=== PATIENT | male | born 1950 | race Caucasian/White ===

== ENCOUNTER → 2021-04-06 13:07 | Outpatient (CLI) | payer MEDICARE, OTHER, SELFPAY | PROVIDERS: PCP Pediatrics; Visit Provider Nurse Practitioner | DX: Z20.822 Contact with and (suspected) exposure to COVID-19 (principal) | CPT/HCPCS: C9803; U0003; U0005 ==

== ENCOUNTER 2022-04-19 10:50 | Emergency (ER) | payer MEDICARE, OTHER, SELFPAY ==
[2022-04-19 13:00] VITALS: BP 140/86; PULSE 83; RESP 19; TEMP 36.6; O2SAT 98; BMI 34.2
--- NOTE | 2022-04-19 13:16 | EXP.UTC ---
Discharge Plan Disposition Patient Disposition: Home, Self-Care Condition: Good Prescriptions Prescriptions: New azithromycin [Zithromax Z-Jose] 250 mg tablet See Rx Instructions .ROUTE .COMPLEX 5 Days Qty: 6 0RF Rx Instructions: For 250 mg dose pack: take 500 mg today (day 1), then 250 mg for 4 days (days 2-5) methylprednisolone [Medrol (Jose)] 4 mg tablets,dose pack See Rx Instructions .Route .COMPLEX 6 Days Qty: 21 0RF Rx Instructions: taper pack; Referrals Follow up/Referrals: Thor Graf [Primary Care Provider] - See instructions Activity Restrictions/Add. Instructions Additional Instructions/Restrictions: *Monitor Temp, Over the counter Motrin or Tylenol as directed/as needed Tylenol every 4 hours and Motrin every 6 hours (as long as your family doctor has told you that you can take it) for fever or pain. and straight to ER if unable to lower temp less than 101.0 after medication given *Warm salt water gargles may help to soothe the throat *Throat Lozenges? *Warm fluids like tea with honey may help to soothe the throat? *Sleep elevated *Humidifier/Vaporizer Start oral steriods tomorrow Follow up IMMEDIATELY for new or worsening symptoms or no Noticeable improvement over the next 48-72 hours. 911 for difficulty breathing or swallowing Clinical Impressions Clinical Impression: Sinusitis Instructions Patient Instructions: Sinusitis, DI for Sinusitis Discharge ED Provider: Griselda Smith [facility] General Stated complaint: sinus pain Mode of Arrival: Ambulatory Source of Information: Patient Limitations: No Limitations Time Seen by Provider: 04/19/22 13:16 Description of Symptoms (Recalled from Triage Doc. by RN): PATIENT C/O SINUS PRESSURE AND PAIN X 3 DAYS HEENT Symptoms (Recalled from RN notes): Yes Resp Symptoms (Recalled from RN notes): No Skin Symptoms (Recalled from RN notes): No MS Symptoms (Recalled from RN notes): No Functional Status (Recalled from RN notes): WNL History of Present Illness Provider Complaint: Patient states that he has been having sinus pain and pressure on and off for over a week that has got worse over the last 3 days States that he gets these about twice a year and has to get antibiotitics and steriods to clear it up Related Data Previous Rx's Medication Instructions Recorded azithromycin 250 mg tablet See Rx Instructions PO .COMPLEX 5 04/19/22 (Zithromax Z-Jose) days #6 tabs methylprednisolone 4 mg tablets in See Rx Instructions .Route 04/19/22 a dose pack (Medrol (Jose)) .COMPLEX 6 days #21 tabs Allergies Allergy/AdvReac Type Severity Reaction Status Date / Time No Known Allergies Allergy Verified 03/29/19 10:04 Worker's Comp Is this a Worker's Comp case?: No [facility] Disclaimer: The information contained in this section may have been updated after the patient was seen, as this information can be updated by other users. Surgical History (Updated 04/19/22 @ 13:14 by Alix Tran RN) History of hernia repair History of knee surgery History of shoulder surgery Social History (Updated 04/19/22 @ 13:14 by Alix Tran RN) Smoking Status: Unknown if ever smoked second hand exposure: No alcohol intake: never current occupational status: other Travel in the last 8 weeks: None housing: house ROS Obtained: Yes All systems reviewed & no additional complaints except as documented and Yes Systems reviewed as appropriate & no additional complaints except as documented Constitutional Constitutional: Reports system reviewed and no additional complaints, except as documented and Reports as per HPI ENT Ears, Nose, Mouth, and Throat: Reports system reviewed and no additional complaints, except as documented, Reports as per HPI, Reports sinus pain and Reports sinus pressure Cardiovascular Cardiovascular: Reports system reviewed and no additional complaints, except as documented and Report
[2022-04-19 13:59] VITALS: BP 140/86; PULSE 83; RESP 19; TEMP 36.6; O2SAT 98
== END 2022-04-19 14:01 | disposition home or self-care (01) ==
PROVIDERS: Emergency Provider Nurse Practitioner; PCP Pediatrics
DX: J32.9 Chronic sinusitis, unspecified (principal)
CPT/HCPCS: 96372; 99212; G0463; J0696

== ENCOUNTER 2025-05-07 21:08 | Emergency (ER) | payer MEDICARE, OTHER, SELFPAY ==
--- OUTSIDE RECORDS SUMMARY | 2025-03-15 08:15 | XMS_ITS | Encounter Summary ---
Author Organization [facility] Address [address] [place] [address] Care Team Providers Care Strap Buckler Machine Name Role Phone Thor Graf MD Primary Care Provider [phone] Lady Armendariz RN Unavailable [phone] Reason for Visit * Reason Comments Follow-up Encounter Details Date Type Department Care Team (Late st Contact Info) Description 03/15/2025 9:15 AM EDT Office Visit [facility] [address] [place] [address] Gustavo Real MD [address] [place] [address] SI (sacroiliac) joint dysfunction (Primary Dx) Social History Tobacco Use Types Packs/Day Years Used Date Smoking Tobacco: Never Passive Smoke Exposure: Never Smokeless Tobacco: Never Alcohol Use Standard Drinks/Week Comments Not Currently 0 (1 standard drink = 0.6 oz pur e alcohol) B1300 Health Literacy Answer Date Recor ded How often do you need to hav e someone help you when you read instructions, pamphlets, or other written material from your doctor or pharmacy? Never 11/27/2024 [facility] Utilities Answer Date Recorded In the past 12 months has e electric, gas, oil, or water company threatened to shut off services in your home? No 12/11/2024 Social Connection and Isolation Panel Answer Date Recorded In a typical week, how many times do you talk on the phone with family, friends, or neighbors? More than three times a week 11/27/2024 How often do you get togethe r with friends or relatives? More than three times a week 11/27/2024 Attends [employer] Services Not on file 11/27 Active Member of Clubs or Organizations Not on f ile 11/27/2024 Attends Club or Organization Meetings Not on nya e 11/27/2024 Are you , , di vorced, , never , or living with a partner? 11/27/2024 Overall Financial Resource Strain (CARDIA) Answe r Date Recorded How hard is it for you to pa y for the very basics like food, housing, medical care, and heating? Not very hard 12/11/2024 PHQ-2 Answer Date Recorded PHQ-2 Total Score 0 12/11/2024 [facility] [place] [facility] Occupat ional Health - Occupational Stress Questionnaire Answer Date Recorded Do you feel stress - tense, restless, nervous, or anxious, or unable to sleep at night because your mind is troubled all the time - these days? Not at all 12/11/2024 Exercise Vital Sign Answer Date Recorde d On average, how many days pe r week do you engage in moderate to strenuous exercise (like a brisk walk)? 7 days 12/11/2024 On average, how many minutes do you engage in exercise at this level? 150+ min 12/11/2024 Hunger Vital Sign Answer Date Recorded Within the past 12 months, y ou worried that your food would run out before you got the money to buy more. Never true 12/12/19 25 Within the past 12 months, t he food you bought just didn't last and you didn't have money to get more. Never true 12/11/2024 PRAP[facility] - Transportation Answer Date Re corded In the past 12 months, has l ack of transportation kept you from medical appointments or from getting medications? No 11/13 In the past 12 months, has l ack of transportation kept you from meetings, work, or from getting things needed for daily living? No 11/27/2024 Housing Stability Vital Sign Answer Merritt e Recorded In the last 12 months, was t here a time when you were not able to pay the mortgage or rent on time? No 11/27/2024 In the past 12 months, how m any times have you moved where you were living? 0 11/27/2024 At any time in the past 12 m [facility], were you homeless or living in a usp (including now)? No 11/27/2024 [facility] IP Transportation Answer D ate Recorded In the past 12 months, has l ack of reliable transportation kept you from medical appointments, meetings, work or from getting things needed for daily living? No 12/11/2024 Sex and Gender Information Value Date Recorded Sex Assigned at Not on file Legal Sex Male 2:28 PM EDT Gender Identity Not on file Sexual Orientation Not on file documented as of this encounter Functional Status * Is the person deaf or does he/she have serious difficulty hearing? Answer Date of Assessment Author No 11/29/2024 7:48 AM Anson Bashir CCMA * Is the person blind or does he/she have serious difficulty seeing even when wearing glasses? Answer Date of Assessment Author No 11/29/2024 7:48 AM EDAnson Blank CCMA * Does this person have serious difficulty walking or climbing stairs? Answer Date of Assessment Author No 11/29/2024 7:48 AM Anson Bashir CCMA * Does this person have difficulty dressing or bathing? Answer Date of Assessment Author No 11/29/2024 7:48 AM Anson Bashir CCMA * Because of a physical, mental or emotional condition, does this person have difficulty doing errands alone such as visiting a doctor's office or shopping? Answer Date of Assessment Author No 11/29/2024 7:48 AM Anson Bashir CCMA documented as of this encounter Mental Status * Because of a physical, mental or emotional condition, does this person have serious difficulty concentrating, remembering or making decisions? Answer Entry Date Author No 11/29/2024 7:48 AM Anson Bashir CCMA documented in this encounter Progress Notes * Gustavo Bowie MD - 03/15/2025 9:15 AM EDT Images from the original note were not included. HPI 74-year-old male who comes here regarding his lower back he was diagnosed with SI joint dysfunctionand received a left-sided SI joint injection helped significant with the symptoms he still feels some stiffness and soreness into the lumbar spine. Past medical history surgical history medication allergies and review of system all review of notedchart Physical exam On exam today there is no SI joint pain is more stiffness and soreness from possible facet joint arthritis changes. 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 If the symptoms do not get better he will need an MRI and see Dr. Gupta for possible facet joint injection. Lumbar support brace was recommended documented in this encounter Plan of Treatment Upcoming Encounters Date Type Department Care Team (Late st Contact Info) Description 06/25/2025 8:45 AM EST Appointment [place] [address] 06/25/2025 9:00 AM EST Appointment [facility] [place] [address] Jose Pretty MD [address] [place] [address] [address] [place] [address] documented as of this encounter Goals Goal Patient Goal Type Associated Problems Recent Progress Patient-Stated? Author Maintain a healthy diet, exercise regularly and maintain an ideal body weight General No Nakita Lewis S, RMA documented as of this encounter Visit Diagnoses Diagnosis SI (sacroiliac) joint dysfunction- Primary Disorders of sacrum documented in this encounter Historical Medications * This list may reflect changes made after this encounter. atorvastatin (LIPITOR) 40 mg Oral Tablet Take 40 mg by mouth nightly. 03/04/2025 added in this encounter Additional Health Concerns Assessment Noted Time A fall risk assessment has been complete d for the patient 04/30/2024 7:59 AM EST documented as of this encounter Care Teams Strap Buckler Machine Relationship Specialty Start Date End Date Thor Graf MD [facility] [place] [id number] PCP - General 06/12/09 Lady Armendariz, RN Oncology Nurse Navigator 11/13/24 documented as of this encounter
--- OUTSIDE RECORDS SUMMARY | 2025-03-19 08:50 | XMS_ITS | Encounter Summary ---
Author Organization [place] [address] Care Team Providers Care Production Broacher Name Role Phone Thor Graf MD Primary Care Provider [phone] Lady Armendariz RN Unavailable [phone] Reason for Visit * Reason Comments Labs Only Encounter Details Date Type Department Care Team (Late Contact Info) Description 03/19/2025 8:50 AM EST Clinical Support [facility] [address] [place] [id number] Nakita Flores E [address] [place] [address] Malignant neoplasm of transverse colon (HCC) Social History Tobacco Use Types Packs/Day Years [...] from your doctor or pharmacy? Never 11/27/2024 [facility] Utilities Answer Date Recorded In the past 12 months has [employer] electric, gas, oil, or water company threatened [...] than three times a week 11/27/2024 Attends [employer] Not on file 11/27 Active Member [...] Date Recorded PHQ-2 Total Score 0 12/11/2024 [facility] ional Health - Occupational Stress [...] any time in the past 12 m [facility], were you homeless or living in a custodial (including now)? No 11/27/2024 [facility] IP Transportation Answer D ate Recorded In [...] of Assessment Author No 11/29/2024 7:48 AM EDT Anson Lancaster CCMA * Is the person blind or does he/she have serious difficulty seeing even when wearing glasses? Answer Date of Assessment Author No 11/29/2024 7:48 AM EDAnson Blank CCMA * Does this person have serious difficulty walking or climbing stairs? Answer Date of Assessment Author No 11/29/2024 7:48 AM EDAnson Blank CCMA * Does this person have difficulty dressing or bathing? Answer Date of Assessment Author No 11/29/2024 7:48 AM EDAnson Blank CCMA * Because of a physical, mental or emotional condition, does this person have difficulty doing errands alone such as visiting a doctor's office or shopping? Answer Date of Assessment Author No 11/29/2024 7:48 AM EDAnson Blank CCMA documented as of this encounter Mental Status * Because of a physical, mental or emotional condition, does this person have serious difficulty concentrating, remembering or making decisions? Answer Entry Date Author No 11/29/2024 7:48 AM Anson Bashir CCMA documented in this encounter Progress Notes * Nakita Flores - 03/19/2025 8:50 AM EST Venipuncture in the right antecubital vein with 21 gauge needle, length 1 1/2 inch. documented in this encounter Plan of Treatment Upcoming Encounters Date Type Department Care Team (Late st Contact Info) Description 06/25/2025 8:45 AM EST Appointment [place] [address] 06/25/2025 9:00 AM EST Appointment [place] [place] [address] Jose Pretty MD [address] [facility] [address] [place] [address] documented as of this encounter Goals Goal Patient Goal Type Associated Problems Recent Progress Patient-Stated? Author Maintain a healthy diet, exercise regularly and maintain an ideal body weight General No Nakita Lewis, VICK documented as of this encounter Procedures Procedure Name Priority Date/Time Associated Diagnosis Comments CARCINOEMBRYONIC ANTIGEN Routine 025 8:36 AM EST Malignant neoplasm of transverse colon (HCC) documented in this encounter Results * CARCINOEMBRYONIC ANTIGEN (03/19/2025 8:36 AM EST) CEA (Legacy) 0.60 ng/mL 5 8:38 PM EST [employer] Comment: Non-Smokers: <= 5.0 ng/mL Smokers: <= 10.0 ng/mL [facility] uses the [employer] Officer CEA assay, which is intended to be used as an aid in the prognosis and management of cancer patients. CEA can have significant value in the monitoring of patients with diagnosed malignancies in whom changing concentrations of CEA are observed. CEA testing is not recommended as a screening test for the general population. Values obtained with different assay methods should not be used interchangeably. CEA 0.73 See Interpretive Data ng/mL 5 8:38 PM EST [employer] Comment: Non-Smokers: <= 3.8 ng/mL Smokers: <= 5.5 ng/mL Please note that this result was provided as part of a rebaselining process in preparation to implement a new testing methodology for CEA using the Robyn Fabricio electrochemiluminescence immunoassay. Differences in values may be observed due to variation in methodologies and should not be used interchangeably. The test is intended for use as an aid in the management of cancer patients. Slight to moderate CEA concentrations can occur in a variety of non-malignant diseases as well as in smokers. CEA determinations are not recommended for cancer screening in the general population. Blood VENOUS BLOOD / Unknown Venipuncture / Unknown 03/19/2025 8:36 AM EST 03/19/2025 8:36 AM EST [facility] ELECTRONIC FIELD SERVICE ENGINEER CHEMISTRY ORDERABLES Final Re sult [facility] [address] [facility] , [address] [place] [address] documented in this encounter Visit Diagnoses Diagnosis Malignant neoplasm of transverse colon (HCC) Malignant neoplasm of transverse colon documented in this encounter Additional Health Concerns Assessment Noted Time A fall risk assessment has been complete d for the patient 04/30/2024 7:59 AM EST documented as of this encounter Care Teams Production Broacher Relationship Specialty Start Date End Date Thor Graf MD [employer] [place] [address] [place] [id number] PCP - General 06/12/09 Lady Armendariz, RN Oncology Nurse Navigator 11/13/24 documented as of this encounter
--- OUTSIDE RECORDS SUMMARY | 2025-03-21 11:00 | XMS_ITS | Encounter Summary ---
Author Organization [place] [address] Care Team Providers Care Molecular Pathologist Name Role Phone Thor Graf MD Primary Care Provider [phone] Lady Armendariz RN Unavailable [phone] Reason for Visit * Reason Comments Other Drainage in throat Encounter Details Date Type Department Care Team (Late Contact Info) Description 03/21/2025 11:00 AM EST Office Visit [facility] [address] [place] [id number] Leona Kaba APRN [address] [place] [address] Rhinorrhea (Primary Dx); Acute cough Social History Tobacco Use Types Packs/Day Years [...] from your doctor or pharmacy? Never 11/27/2024 [facility] Utilities Answer Date Recorded In the past [...] than three times a week 11/27/2024 Attends [employer] [facility] Not on file 11/27 Active Member [...] Date Recorded PHQ-2 Total Score 0 12/11/2024 [facility] - Occupational Stress [...] any time in the past [address] [facility], were you homeless or living in a fpc (including now)? No 11/27/2024 [facility] [address] IP Transportation Answer D ate Recorded In [...] on file documented as of this encounter Last Filed Vital Signs Vital Sign Reading Time Taken Comments Blood Pressure 131/67 03/21/2025 10:53 AM EST Pulse 84 03/21/2025 10:53 AM EST Temperature 36.9 C (98.5 F) 03/21/2025 10:53 AM EST Respiratory Rate 18 03/21/2025 10:53 AM EST Oxygen Saturation 97% 03/21/2025 10:53 AM EST Inhaled Oxygen Concentration - - Weight 103 kg (227 lb) 03/21/2025 10:53 AM EST Height - - Body Mass Index 34.52 02/22/2025 9:20 AM EDT documented in this encounter Functional Status * Is the person deaf or does he/she have serious difficulty hearing? Answer Date of Assessment Author No 11/29/2024 7:48 AM EDT Anson Lancaster CCMA * Is the person blind or does he/she have serious difficulty seeing even when wearing glasses? Answer Date of Assessment Author No 11/29/2024 7:48 AM EDT Anson Lancaster CCMA * Does this person have serious difficulty walking or climbing stairs? Answer Date of Assessment Author No 11/29/2024 7:48 AM EDT Anson Lancaster CCMA * Does this person have difficulty dressing or bathing? Answer Date of Assessment Author No 11/29/2024 7:48 AM EDT Anson Lancaster CCMA * Because of a physical, mental [...] documented in this encounter Progress Notes * Leona Kaba APRN - 03/21/2025 11:00 AM EST Assessment & Plan Rhinorrhea -neg covid/flu/rsv -indication for antibiotic use at this time -given steroid IM for acute relief of sx -recommend otc zyrtec/flonase once daily for sx control -follow-up as needed Orders: POCT CEPHEID SARS COV-2 RNA + FLU A/B + RSV methylPREDNISolone acetate (DEPO-Medrol) injection 80 mg betamethasone acet-betamethasone sodium phos (CELESTONE) injection 6 mg Acute cough Orders: POCT CEPHEID SARS COV-2 RNA + FLU A/B + RSV Progress Note: Vitals: 03/21/25 1053 BP: 131/67 Pulse: 84 Resp: 18 Temp: 98.5 ??F (36.9 ??C) TempSrc: Forehead SpO2: 97% Weight: 227 lb (103 kg) Body mass index is 34.52 kg/m??. SUBJECTIVE: Chief Complaint Patient presents with Other Drainage in throat HPI: 2 day hx of PND, congested cough. No fever, chills or body aches. No sob. Review of Systems Constitutional: Negative for fever. HENT: Positive for congestion and postnasal drip. Respiratory: Positive for cough. Negative for shortness of breath and wheezing. Cardiovascular: Negative for chest pain, palpitations and leg swelling. Gastrointestinal: Negative for abdominal pain. Hematological: Negative for adenopathy. Does not bruise/bleed easily. OBJECTIVE: Results for orders placed or performed in visit on 03/21/25 POCT CEPHEID SARS COV-2 RNA + FLU A/B + RSV Result Value Ref Range SARS COV-2 RNA Negative Negative, Invalid INFLUENZA A Negative Negative, Invalid INFLUENZA B Negative Negative, Invalid RSV Negative Negative, Invalid Lot Number Expiration Date SeriAl # Control Line Physical Exam Constitutional: Appearance: Normal appearance. HENT: Head: Normocephalic and atraumatic. Right Ear: Tympanic membrane normal. Left Ear: Tympanic membrane normal. Nose: Nose normal. Mouth/Throat: Mouth: Mucous membranes are moist. Cardiovascular: Rate and Rhythm: Normal rate and regular rhythm. Heart sounds: Normal heart sounds. Pulmonary: Effort: Pulmonary effort is normal. Breath sounds: Normal breath sounds. Musculoskeletal: Cervical back: Normal range of motion. Neurological: Mental Status: He is alert and oriented to person, place, and time. Psychiatric: Mood and Affect: Mood normal. Thought Content: Thought content normal. Judgment: Judgment normal. documented in this encounter Plan of Treatment Upcoming Encounters Date Type Department Care Team (Late st Contact Info) Description 06/25/2025 8:45 AM EST Appointment [facility] [address] 06/25/2025 9:00 AM EST Appointment [facility] [place] [address] Jose Pretty MD [address] [place] [address] [address] [place] [address] documented as of this encounter Goals Goal Patient Goal Type Associated Problems Recent Progress Patient-Stated? Author Maintain a healthy diet, exercise regularly and maintain an ideal body weight General No Nakita Lewis S, RMA documented as of this encounter Procedures Procedure Name Priority Date/Time Associated Diagnosis Comments POCT CEPHEID SARS COV-2 RNA + FLU A/B + RSV Routine 03/21/2025 11:47 AM EST Rhinorrhea Acute cough documented in this encounter Results * POCT CEPHEID SARS COV-2 RNA + FLU A/B + RSV (03/21/2025 11:47 AM EST) SARS COV-2 RNA Negative Negative, Invalid SEP OFFICE INFLUENZA A Negative Negative, Invalid SEP OFFICE INFLUENZA B Negative Negative, Invalid SEP OFFICE RSV Negative Negative, Invalid SEP OFFICE Lot Number SEP OFFICE Expiration Date SEP OFFICE SeriAl # SEP OFFICE Control Line SEP OFFICE 03/21/2025 11:4 7 AM EST Leona Kaba PHOTOENGRAVING FINISHER POINT OF CARE TEST ORDERABL ES Final Result SEP OFFICE documented in this encounter Visit Diagnoses Diagnosis Rhinorrhea- Primary Other diseases of nasal cavity and sinuses Acute cough documented in this encounter Administered Medications Inactive Administered Medications - up to 1 most recent administrations Medication Order MAR Action Action Date Dose Rate Site betamethasone acet-betamethasone sodium phos (CELESTONE) injection 6 mg 6 mg, Intramuscular, ONCE, 1 dose, On Nichole 03/21/25 at 1115, Do not refrigerate, Dx: 1. RhinorrheaIndications:Rh inorrhea Given 03/21/2025 11:28 AM EST 6 mg Right upper gluteus methylPREDNISolone acetate (DEPO-Medrol) injection 80 mg 80 mg, Intramuscular, ONCE, 1 dose, On Nichole 03/21/25 at 1115, Dx: 1. RhinorrheaIndications:Rh inorrhea Given 03/21/2025 11:28 AM EST 80 mg Right upper gluteus documented in this encounter Additional Health Concerns Assessment Noted Time A fall risk assessment has been complete d for the patient 04/30/2024 7:59 AM EST documented as of this encounter Care Teams Molecular Pathologist Relationship Specialty Start Date End Date Thor Graf MD [address] [place], [place] [id number] PCP - General 06/12/09 Lady Armendariz, RN Oncology Nurse Navigator 11/13/24 documented as of this encounter
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
--- OUTSIDE RECORDS SUMMARY | 2025-05-01 08:00 | XMS_ITS | Encounter Summary ---
Author Organization [place] [address] Care Team Providers Care Special Librarian Name Role Phone Thor Graf MD Primary Care Provider [phone] Lady Armendariz RN Unavailable [phone] Reason for Visit * Reason Comments Medicare Annual Wellness medicare Encounter Details Date Type Department Care Team (Late Contact Info) Description 05/01/2025 8:00 AM EST Office Visit [facility] [place] [address] [place] [address] Thor Graf MD [address] [place] [address] Annual physical exam (Primary Dx); Rhinosinusitis; Screening for prostate cancer; Muscle cramps Social History Tobacco Use Types Packs/Day Years [...] from your doctor or pharmacy? Never 11/27/2024 [facility] Utilities Answer Date Recorded In the [...] than three times a week 11/27/2024 Attends [employer] Services Not on file 11/27 Active Member [...] Date Recorded PHQ-2 Total Score 0 12/11/2024 [facility] [...] any time in the past 12 m [facility], were you homeless or living in a residential (including now)? No 11/27/2024 [facility] IP Transportation Answer D ate Recorded In [...] Sign Reading Time Taken Comments Blood Pressure 130/70 05/01/2025 7:58 AM EST Pulse 78 05/01/2025 7:58 AM EST Temperature 36.7 C (98 F) 05/01/2025 7:58 AM EST Respiratory Rate 18 05/01/2025 7:58 AM EST Oxygen Saturation 97% 05/01/2025 7:58 AM EST Inhaled Oxygen Concentration - - Weight 101.6 kg (224 lb) 05/01/2025 7:58 AM EST Height 172.7 cm (5' 8 ) 05/01/2025 7:58 AM EST Body Mass Index 34.06 05/01/2025 7:58 AM EST documented in this encounter Functional Status [...] Anson Bashir CCMA documented in this encounter Ordered Prescriptions Prescription Sig Dispense Quantity Refills Last Filled Start Date End Date ergocalciferol (VITAMIN D) 1,250 mcg (50,000 unit) Oral CapsuleIndications :Muscle cramps Take 1 Capsule by mouth once a week for 90 days. 12 Capsule 05/01/2025 meclizine (ANTIVERT) 25 mg Oral Tablet Take one every 6 hours as needed for dizziness. 20 Tablet 1 05/01/2025 fluticasone propionate (FLONASE) 50 mcg/actuation Nasl [place], SuspensionIndicati ons:Rhinosinusitis 1 [place] by Nasal route daily. 1 Each 1 05/01/2025 documented in this encounter Progress Notes * Tohr Graf MD - 05/01/2025 8:00 AM ESTAssociated Problem(s): Annual physical exam Orders: COMPREHENSIVE METABOLIC PANEL; Future CBC WITH DIFF; Future LIPID SCREEN; Future * Thor Graf MD - 05/01/2025 8:00 AM EST Assessment & Plan 1. Leg cramps: - The leg cramps may be associated with his cholesterol medication. - A prescription for vitamin D, to be taken once weekly, has been provided. Additionally, he is advised to take [id number] magnesium 400 mg daily. - If these interventions do not alleviate the cramps within a few weeks, he should inform the office so that alternative treatments can be considered. - If the cramps persist, a reduction in his cholesterol medication dosage may be necessary. 2. Post-surgical groin pain: - He is experiencing groin pain post-surgery, which is expected to last between 6 to 9 months. - This pain is likely due to the healing process of the muscle fibers and nerves that were cut during surgery. - He is reassured that this is a normal part of recovery and should gradually improve over time. 3. Health maintenance: - Routine blood work, including prostate and cholesterol levels, will be conducted. Assessment & Plan Rhinosinusitis Orders: fluticasone propionate (FLONASE) 50 mcg/actuation Nasl [place], Suspension; 1 [place] by Nasal route daily. Annual physical exam Orders: COMPREHENSIVE METABOLIC PANEL; Future CBC WITH DIFF; Future LIPID SCREEN; Future Screening for prostate cancer Orders: PROSTATE SPECIFIC ANTIGEN (SCREENING); Future Muscle cramps Orders: ergocalciferol (VITAMIN D) 1,250 mcg (50,000 unit) Oral Capsule; Take 1 Capsule by mouth once a week for 90 days. No follow-ups on file. Subjective Pato Chadwick Sr. is a 74 y.o. male Chief Complaint Patient presents with Medicare Annual Wellness medicare Subsequent Annual Medicare Wellness Assessment. Risk Assessments: Fall Risk Assessment Has the patient had any fall with injury in the past year?: No Has the patient had 2 or more falls in the past year?: No Is the patient able to sit without assistance?: Yes Is the patient able to get up without assistance?: Yes Does the patient have a difficult time ambulating when first getting up?: No Does the patient have rugs or runners in the home?: No Does the patient have grab bars in the bathroom?: (!) No Does the patient have stairs inside or outside of the home?: No (In Office Assessment Only): Is the patient able to ambulate without assistance/device and with a gait steady?: Yes (In Office Assessment Only): TUG test: Time patient going from sitting to standing, walk 10 feet, return to chair and sit. Record time. : Less or equal to 12 seconds Functional Status Assessment Functional Level: self care Functional Mobility Assessment: independent w/o assist device Assessment of transportation needs: still drives most of the time Functional Activities of Daily Living Limitations: No issues Bladder: Do you have issues with your bladder, such as urgency or leaking urine?: No issues Does the patient report issues or concerns regarding hearing?: No Activities of Daily Living Assistive Device Assessment Assistive Devices: Eyeglasses Rx Osteoporosis Screening Assessment Has the patient had a DEXA (Bone Density) scan in the past 2 years?: Not applicable (male) No results found for this or any previous visit. Abnormal Pains Assessment Excluding what you would consider normal aches and pains for your age and medical condition, do youhave any unusual or worrisome pains?: No Opiate Screening Are you currently on opiate or narcotic medications?: No PHQ Depression Screening Results Little interest or pleasure in doing things: 0 Feeling down, depressed, or hopeless: 0 PHQ-2 Total Score: 0 PHQ-9 Total Score: 0 Advanced Directive Evaluation Does the patient have an Advance Directive?: (!) Yes, but not on file (Please bring your Advance Directive to your next office visit) Advance Care Planning Guide Given?: (!) No (For Dementia Screening below can use either AD-8 or Mini Cog. Doesn't require both.) AD-8 Dementia Screening tool results Problems with judgement: 0 Less interest in hobbies/activities: 0 Repeats the same things over and over: 0 Trouble learning how to use a tool, appliance or gadget: 0 Forgets correct month or year: 0 Trouble handling complicated financial affairs: 0 Trouble remembering appointments: 0 Daily problems with thinking and/or memory: 0 Total AD8 score:: 0 Mini Cog Dementia Screening tool results Number of words immediately repeated back correctly.: 3 Clock Test: Please draw a clock face and draw in hands to show 10 minutes past eleven o'clock.: correct number placement, 1 pt; correct hand placement, 1 pt Number of Words Recalled: 3 Dementia: Negative Welcome to Medicare Vision Screening Eye Exam : Not applicable/required for Subsequent AWV, only required for Welcome to Medicare Visit Patient Instructions AWV findings and Plan of Care: Recommendations as part of the Personal Plan of Care based on risk screening assessments are: Fall Risk Assessment: Fall Risk Assessment: negative - re-assess in 1 year Functional Status/Social Determinates of Health: stable, no issues, re-assess in 1 year Depression Screening: negative - re-assess in 1 year Dementia Screening: negative - recommend re-assess in 1 year Vaccinations: - up to date Exercise/Activity: recommended continuing current Recommended follow up annually for Medicare Annual Wellness Visit. Good preventative health care is important in reducing morbidity and mortality. I recommend exercise regularly as tolerated focusing on strength and balance. I recommend a balanced diet focusing on fruits, veggies, and lean meats. I recommend avoiding having rugs, runners, or other loose trip hazards in the home as these increase fall risk. I recommend installing grab bars in the bathrooms close to toilets, in tubs, and in showers as these are common areas for falls when transitioning from wet surfaces to dry surfaces, or visa versa. This is also an area of the home that is high risk for falls at night. I encourage having an Advanced Directives. This is something we recommend you have on file at home,as well as something that we should have on file in our records. If we don't have a copy of your current Advanced Directive, please bring a copy to your next visit. If you have a power of city attorney [facility], we should also have a copy on file. I encourage candid discussion with your family on your wishes in the event that you are incapacitated and unable to participate in direct medical decision making. It is important to stay up to date on recommended vaccinations, please see the health maintenance topics due below and if we have not completed one of those topics today, please consider completing as part of your wellness plan this year. Below are other health maintenance topics that are recommended to be closed at your earliest opportunity. You may notice that some of these were addressed in the office today and will show as resolved in your [facility] account soon. Health Maintenance Due Topic Date Due Zoster (1 of 2) Never done DTaP/TDaP/Td (2 - Td or Tdap) 11/18/2024 COVID-19 Vaccine ( season) 2025 Wellness Exam Medicare 05/01/2025 As part of today's visit the components of the Medicare wellness assessment were completed. These components included reviewing the information available in the risk screening questionnaire that was administered by ancillary staff either today or prior to today's visit (pre-visit planning) and recorded in the Medicare Wellness Assessment Flowsheet in the EMR. I have reviewed the data in regards to fall risk, activities of daily living/functional status, depression screening, dementia screening,and outstanding Health Maintenance topics and edited where necessary. The staff has reviewed and updated the past medical history, social history, family history, allergies, medications, and care team information during the standard rooming process. I have also reviewed this data as part of today'svisit. Below are the findings, recommendations, and Personal Plan of Care. The patient received a copy of their Personal Plan of Care including health maintenance topics thatare recommended to be completed and this can be noted in the after visit summary. The AVS is provided to the patient digitally through their [facility] account or with a paper copy if the patient doesn't have an active MyChart Account. A copy of today's progress note with recommendations below is alsoavailable electronically for patients with an active [facility] account per the Federal Cures Act. TheAVS also contains additional patient education if appropriate on topics common to wellness and their plan of care. History Reviewed: No results found. No results found for this visit on 05/01/25. Problem List[1] Past Medical History[2] Surgical History[3] Allergies[4] Medications ordered prior to the current encounter[5] Social History[6] Family History[7] Immunization History Administered Date(s) Administered Influenza High Dose 03/14/2017, 02/23/2018, 04/09/2019, 04/30/2024, 02/25/2025 Influenza Intradermal 04/24/2012 Influenza Vaccine Quadrivalent 02/03/2015, 04/02/2016 Influenza Vaccine, Unspecified Formulation 03/16/2020 Moderna SARS-CoV-2 Booster Vaccine 18+ Yrs (Light Blue Border) 04/01/2021 Moderna SARS-CoV-2 Vaccine 12+ Yrs (Light blue border) 06/29/2020, 07/27/2020 Pneumococcal Conjugate Vaccine 20 Valent 04/28/2023 Pneumococcal Polysaccharide 23 Valent 04/09/2019 Quadrivalent Influenza High Dose 02/09/2021, 04/26/2022, 04/28/2023 Td (Adult), Absorbed 07/21/1996 Tdap 11/18/2014 Health Maintenance Topic Date Due Zoster (1 of 2) Never done DTaP/TDaP/Td (2 - Td or Tdap) 11/18/2024 COVID-19 Vaccine ( - season) 2025 Wellness Exam Medicare 05/01/2025 Colon Cancer Screening 10/31/2025 Influenza Vaccine Completed Hepatitis C Screening Completed Pneumococcal Vaccine 50+ Completed Meningococcal B Vaccine Aged Out Hepatitis B Vaccine Aged Out Patient Care Team: Thor Graf MD as PCP - General Lady Armendariz, RN as Oncology Nurse Navigator Additional issues addressed today: History of Present Illness The patient is a 74-year-old male who presents for evaluation of leg cramps. He reports experiencing leg cramps, particularly in the mornings, which occasionally affect both legs. These cramps are often triggered by stretching while in bed and have been severe enough to disrupt his sleep. He has not sustained any recent injuries to his legs and does not experience significant discomfort during daytime activities. On 04/29/2025, he experienced a persistent muscle knot throughout the day, which he managed with a heating pad. He also reports a constant stiffness in his neck. His sales project coordinator recently increased his cholesterol medication dosage due to a decrease in his cholesterol levels. He has a follow-up appointment scheduled with his sales project coordinator next month. He has been experiencing groin pain, which he describes as similar to a muscle pull. He reports no visible bulges or protrusions in the area and does not believe he has a hernia. He had a consultation with a surgeon in 03/2025, who found no abnormalities. He was informed that 30 lymph nodes were removed during his surgery. He has noticed that his trunk tends to get cold easily, but he is able to continue his usual activities. Social History: Occupation: livestock farmer Sleep: Reports leg cramps disrupting sleep PAST SURGICAL HISTORY: - Removal of 30 lymph nodes Review of Systems Constitutional: Negative. Negative for activity change, fatigue, fever and unexpected weight change. HENT: Negative. Negative for trouble swallowing. Eyes: Negative. Negative for photophobia, pain, discharge, itching and visual disturbance. Respiratory: Negative. Negative for cough, chest tightness, shortness of breath and wheezing. Cardiovascular: Negative. Negative for chest pain, palpitations and leg swelling. Gastrointestinal: Negative. Negative for abdominal distention, abdominal pain, blood in stool, constipation and diarrhea. Musculoskeletal: Negative. Negative for arthralgias, back pain, gait problem, joint swelling, myalgias, neck pain and neck stiffness. Skin: Negative. Negative for color change, pallor, rash and wound. Neurological: Negative. Negative for dizziness and headaches. Hematological: Negative for adenopathy. Psychiatric/Behavioral: Negative. Negative for confusion, sleep disturbance and suicidal ideas. Thepatient is not nervous/anxious. Objective Blood pressure 130/70, pulse 78, temperature 98 ??F (36.7 ??C), temperature source Temporal, resp. rate 18, height 5' 8 (1.727 m), weight 224 lb (101.6 kg), SpO2 97%. Body mass index is 34.06 kg/m??. Physical Exam Neck: Stiff neck reported. Extremities: Muscle cramps primarily in the legs, especially in the morning and sometimes at night. Musculoskeletal: No new injuries noted. No bulging or hernia observed in the groin area. Physical Exam Vitals reviewed. Constitutional: General: He is not in acute distress. Appearance: Normal appearance. He is well-developed. He is not diaphoretic. HENT: Head: Normocephalic and atraumatic. Right Ear: External ear normal. Left Ear: External ear normal. Mouth/Throat: Pharynx: No oropharyngeal exudate. Eyes: General: No scleral icterus. Right eye: No discharge. Left eye: No discharge. Conjunctiva/sclera: Conjunctivae normal. Pupils: Pupils are equal, round, and reactive to light. Neck: Thyroid: No thyromegaly. Vascular: No JVD. Cardiovascular: Rate and Rhythm: Normal rate and regular rhythm. Heart sounds: Normal heart sounds. No murmur heard. No friction rub. No gallop. Pulmonary: Effort: Pulmonary effort is normal. Breath sounds: Normal breath sounds. Abdominal: General: Bowel sounds are normal. Palpations: Abdomen is soft. There is no mass. Tenderness: There is no abdominal tenderness. There is no guarding or rebound. Musculoskeletal: General: No tenderness. Normal range of motion. Cervical back: Normal range of motion and neck supple. Lymphadenopathy: Cervical: No cervical adenopathy. Skin: General: Skin is warm and dry. Coloration: Skin is not pale. Findings: No erythema or rash. Neurological: Mental Status: He is alert and oriented to person, place, and time. Results The provider educated the patient (or legal computer help desk representative) on the use of the ambient listening artificial intelligence tool, [employer]. They were informed that this AI tool processes the conversation to generate a clinical note with the expected benefit of improved accuracy while achieving an improved encounter experience for the patient and provider.?The provider explained that the medical information captured by the AI tool including, but not limited to, diagnoses and treatment plan would be protected in accordance with applicable privacy laws and that all diagnoses and treatment decisions would be made by the provider. The provider explained that the note generated will be reviewed bythe provider for accuracy to minimize potential errors.? The patient was given an opportunity to ask questions and opt out of proceeding with the use of the AI tool. After being informed of such information, the patient (or legal computer help desk representative), and each individual in attendance with the patient, verbally consented to the use of the AI tool. [1] Patient Active Problem List Diagnosis Cholelithiasis Asymmetrical sensorineural hearing loss Closed fracture of clavicle Pulmonary nodule DDD (degenerative disc disease), lumbar Spondylolisthesis at L4-L5 level Epigastric hernia Bochdalek hernia MURCIA (dyspnea on exertion) History of esophageal dilatation Mass of hepatic flexure of colon Malignant neoplasm of transverse colon (HCC) Annual physical exam [2] Past Medical History: Diagnosis Date Accident on [...] Shortness of breath Spondylolisthesis at L4-L5 level [3] Past Surgical History: Procedure Laterality Date CARPAL TUNNEL RELEASE Bilateral 07/10/2019 BILATERAL CARPAL TUNNEL RELEASE; Surgeon: Pedro Yang MD; [facility]; Service: Hand COLECTOMY N/A 12/10/2024 LAPAROSCOPIC TRANSVERSE COLECTOMY; Surgeon: Jose Pretty MD; [facility]; Service: General COLONOSCOPY 2024 INGUINAL HERNIA REPAIR Bilateral 07/21/2016 LAPAROSCOPIC BILATERAL INGUINAL HERNIA REPAIR WITH MESH, UMBILICAL HERNIA REPAIR WITH MESH; Surgeon: Brody Escalante MD; [facility]; Service: General KNEE SURGERY Left 1988 repair after chain saw accident NOSE SURGERY 2014 fx repair after bull hit him [place] ARTHRP KNE CONDYLE&PLATU MEDIAL&LAT COMPARTMENTS Left SHOULDER SURGERY Right 2006 rotator cuff repair UMBILICAL HERNIA REPAIR N/A 07/21/2016 Surgeon: Brody Escalante MD; [facility]; Service: General UPPER GASTROINTESTINAL ENDOSCOPY 2019 VENTRAL HERNIA REPAIR N/A 07/20/2019 Epigastric hernia repair with mesh; Surgeon: Alvina Alvarez MD; [facility]; Service: General [4] No Known Allergies [5] Current Outpatient Medications on File Prior to Visit Medication Sig Dispense Refill acetaminophen (TYLENOL) 500 mg Oral Tablet Take 2 Tablets by mouth every 6 hours. Avoid other sources of Tylenol. 40 Tablet 0 aspirin 81 mg Oral Tablet, Chewable Take by mouth daily. atorvastatin (LIPITOR) 40 mg Oral Tablet Take 40 mg by mouth nightly. meloxicam (MOBIC) 7.5 mg Oral Tablet TAKE 1 TABLET BY MOUTH EVERY DAY WITH BREAKFAST 30 Tablet 0 omeprazole (PRILOSEC) 40 mg Oral Capsule, Delayed Release(E.C.) Take 1 Capsule by mouth 2 times daily. 60 Capsule 3 No current facility-administered medications on file prior to visit. [6] Social History Socioeconomic History Marital status: Spouse name: None Number of children: None Years of education: None Highest education level: None Tobacco Use Smoking status: Never Passive exposure: Never Smokeless tobacco: Never Vaping Use Vaping status: Never Used Substance and Sexual Activity Alcohol use: Not Currently Drug use: No Social Drivers of Health Financial Resource Strain: Low Risk (12/11/2024) Overall Financial Resource Strain (CARDIA) Difficulty of Paying Living Expenses: Not very hard Food Insecurity: No Food Insecurity (12/11/2024) Hunger Vital Sign Worried About Running Out of Food in the Last Year: Never true Ran Out of Food in the Last Year: Never true Transportation Needs: No Transportation Needs (12/11/2024) [facility] IP Transportation In the past 12 months, has lack of reliable transportation kept you from medical appointments, meetings, work or from getting things needed for daily living?: No Physical Activity: Sufficiently Active (12/11/2024) Exercise Vital Sign Days of Exercise per Week: 7 days Minutes of Exercise per Session: 150+ min Stress: No Stress Concern Present (12/11/2024) [employer] [place] [employer] [facility] - Occupational Stress Questionnaire Feeling of Stress : Not at all Social Connections: Unknown (11/27/2024) Social Connection and Isolation Panel Frequency of Communication with Friends and Family: More than three times a week Frequency of Social Gatherings with Friends and Family: More than three times a week Marital Status: Intimate Partner Violence: Not At [...] 0 Homeless in the Last Year: No [7] Family History Problem Relation Age of Onset Cancer Father Anesth Problems Neg Hx * Nakita Flores - 05/01/2025 8:00 AM EST Venipuncture in the right antecubital vein with 21 gauge needle, length 1 1/2 inch. documented in this encounter Plan of Treatment Upcoming Encounters Date Type Department Care Team (Late st Contact Info) Description 06/25/2025 8:45 AM EST Appointment [facility] [place] [address] 06/25/2025 9:00 AM EST Appointment [facility] [place] [place] [address] Jose Pretty MD [address] [place] [address] [address] [place] [address] documented as of this encounter Goals Goal Patient Goal Type Associated Problems Recent Progress Patient-Stated? Author Maintain a healthy diet, exercise regularly and maintain an ideal body weight General No Nakita Lewis, RMA documented as of this encounter Procedures Procedure Name Priority Date/Time Associated Diagnosis Comments PROSTATE SPECIFIC ANTIGEN (SCREENING) Routine 05/01/2025 8:23 AM EST Screening for prostate cancer CBC WITH DIFF Routine 05/01/2025 8:23 AM EST Annual physical exam LIPID SCREEN Routine 05/01/2025 8:23 AM EST Annual physical exam COMPREHENSIVE METABOLIC PANEL Routine 05/01/2025 8:23 AM EST Annual physical exam documented in this encounter Results * (ABNORMAL) LIPID SCREEN (05/01/2025 8:23 AM EST) Cholesterol 130 <200 mg/dL 05/01/2025 4:26 PM EST [facility] Comment: < 200 Desirable 200 - 239 Borderline High >= 240 High Triglyceride 70 <150 mg/dL 05/01/2025 4:26 PM EST [facility] Comment: < 150 Normal 150 - 199 Borderline High 200 - 499 High >= 500 Very High HDL 37(L) >=40 mg/dL 05/01/2025 4:26 PM EST [facility]REFERR[facility] Comment: > 60 Optimal 40 - 60 Acceptable < 40 Low LDL Calculated 79 <100 mg/dL 05/01/2025 4:26 PM EST [facility] Comment: < 100 Optimal 100 - 129 Near or above optimal 130 - 159 Borderline High 160 - 189 High >= 190 Very High The National Institutes of Health (NIH) equation is used for all lipid panels that report calculated LDL (LDL-C). Non-HDL-C Calculated 93 <=129 mg/dL 05/01/2025 4:26 PM EST [facility] Comment: <130 Desirable 130-159 Above Desirable 160-189 Borderline High 190-219 High >= 220 Very High Fasting Specimen? Yes None 025 4:26 PM EST [facility] Blood VENOUS BLOOD / Unknown Venipuncture / Unknown 05/01/2025 8:23 AM EST 05/01/2025 8:23 AM EST us Thor Graf MD CHEMISTRY ORDERABLES Final Res ult [facility] [employer] [address] [facility] , [place] [address] * PROSTATE SPECIFIC ANTIGEN (SCREENING) (05/01/2025 8:23 AM EST) Total Psa 0.44 <=4.00 ng/mL 05/01/2025 4:52 PM EST [facility] [employer] Blood VENOUS BLOOD / Unknown Venipuncture / Unknown 05/01/2025 8:23 AM EST 05/01/2025 8:23 AM EST Narrative [facility] [employer] - 05/01/2025 4:52 PM EST The Robyn Ele[employer]ys total PSA electrochemiluminescence (ECLIA) immunoassay is used. Results obtained with different test methods or kits cannot be used interchangeably. The Robyn method is approved for use as an aid in the detection of prostate cancer when used in conjunction with a digital rectal exam in individuals with a prostate aged 50 years or older. The assay is also indicated for the serial measurement of PSA to aid in the prognosis and management of prostate cancer patients. Elevated tPSA concentrations can only suggest the presence of prostate cancer until biopsy is performed. Levels may also be elevated in benign prostatic hyperplasia or inflammatory conditions of the prostate. us Thor Graf MD CHEMISTRY ORDERABLES Final Res ult [facility] [address] [facility] , [place] [address] * (ABNORMAL) CBC WITH DIFF (05/01/2025 8:23 AM EST) WBC 6.0 3.7 - 10.3 x10(3)/mcL 05/01/2025 3:45 PM EST [facility] RBC 4.90 4.60 - 6.10 x10(6)/mcL 05/01/2025 3:45 PM EST [facility] Hgb 12.9(L) 13.7 - 17.5 g/dL 05/01/2025 3:45 PM EST [facility] Hct 41.4 40.0 - 51.0 % 05/01/2025 3:45 PM EST [facility] MCV 84.5 80.0 - 100.0 fL 05/01/2025 3:45 PM EST [facility] MCH 26.3 26.0 - 34.0 pg 05/01/2025 3:45 PM EST [facility] MCHC 31.2 30.7 - 35.5 g/dL 05/01/2025 3:45 PM EST [facility] RDW 15.2(H) <=14.9 % 05/01/2025 3:45 PM EST [facility] Platelet 342 155 - 369 x10(3)/mcL 05/01/2025 3:45 PM EST [facility] MPV 11.7 8.8 - 12.5 fL 05/01/2025 3:45 PM EST [facility] Neut Percent 54.4 % 05/01/2025 3:45 PM EST [facility] Comment:Neutrophils equals s egs plus bands Imm Gran% 0.3 % 05/01/2025 3:45 PM EST [facility] Comment:Automated count of m etamyelocytes, myelocytes and promyelocytes. Lymph Percent 31.3 % 05/01/2025 3:45 PM EST [facility] Calhoun Percent 9.3 % 05/01/2025 3:45 PM EST [facility] Eos Percent 3.7 % 05/01/2025 3:45 PM EST [facility] Baso Percent 1.0 % 05/01/2025 3:45 PM EST [facility] Neut # 3.3 1.6 - 6.1 x10(3)/[facility] 05/01/2025 3:45 PM EST [facility] Comment:Neutrophils equals s egs plus bands IMMGRAN# 0.0 0.0 - 0.1 x10(3)/[facility] 05/01/2025 3:45 PM EST [facility] Comment:Automated count of m etamyelocytes, myelocytes and promyelocytes. An absolute IG <0.1 is reported as 0.0. Lymph # 1.9 1.2 - 3.9 x10(3)/[facility] 05/01/2025 3:45 PM EST [facility] Calhoun # 0.6 0.3 - 0.9 x10(3)/[facility] 05/01/2025 3:45 PM EST [facility] Eos# 0.2 0.0 - 0.5 x10(3)/[facility] 05/01/2025 3:45 PM EST [facility] Baso # 0.1 0.0 - 0.1 x10(3)/[facility] 05/01/2025 3:45 PM EST [facility] Blood VENOUS BLOOD / Unknown Venipuncture / Unknown 05/01/2025 8:23 AM EST 05/01/2025 8:23 AM EST us Thor Graf MD HEMATOLOGY ORDERABLES Final Re sult [facility] [address] [facility] , [place] [address] * (ABNORMAL) COMPREHENSIVE METABOLIC PANEL (05/01/2025 8:23 AM EST) Sodium 138 136 - 145 mmol/L 05/01/2025 4:26 PM EST [facility] Potassium 3.8 3.5 - 5.0 mmol/L 05/01/2025 4:26 PM EST [facility] Chloride 104 98 - 107 mmol/L 05/01/2025 4:26 PM EST [facility] Total CO2 26 22 - 29 mmol/L 05/01/2025 4:26 PM EST [facility] Anion Gap 8 7 - 16 mmol/L 05/01/2025 4:26 PM EST [facility] Calcium 9.2 8.8 - 10.4 mg/dL 05/01/2025 4:26 PM EST [facility] Glucose Lvl 122(H) 70 - 99 mg/dL 05/01/2025 4:26 PM EST [facility] BUN 12 8 - 23 mg/dL 05/01/2025 4:26 PM EST [facility] Creatinine 0.75 0.67 - 1.30 mg/dL 05/01/2025 4:26 PM EST [facility] Albumin 4.0 3.2 - 4.6 gm/dL 05/01/2025 4:26 PM EST [facility] Total Protein 7.0 6.4 - 8.3 gm/dL 05/01/2025 4:26 PM EST [facility] Bili Total 0.6 0.2 - 1.4 mg/dL 05/01/2025 4:26 PM EST [facility] ALT 21 <=41 U/L 05/01/2025 4:26 PM EST [facility] AST 22 <=40 U/L 05/01/2025 4:26 PM EST [facility] Alk Phos 99 40 - 129 U/L 05/01/2025 4:26 PM EST [facility] eGFR (CKD-EPIcr 2020) 95 >=60 mL/min/1.7 3 m2 05/01/2025 4:26 PM EST [facility] Comment:Estimated GFR was ca lculated using the CKD-EPIcr (2020) equation refit without race. The equation is recommended by the National Kidney Foundation - [employer] of Nephrology Task Force. Blood VENOUS BLOOD / Unknown Venipuncture / Unknown 05/01/2025 8:23 AM EST 05/01/2025 8:23 AM EST us Thor Graf MD CHEMISTRY ORDERABLES Final Res ult [facility], [facility] [address] [place] [address] , [address] [place] [id number] documented in this encounter Visit Diagnoses Diagnosis Annual physical exam- Primary Routine general medical examination at a health care facility Rhinosinusitis Unspecified sinusitis (chronic) Screening for prostate cancer Special screening for malignant neoplasm of prostate Muscle cramps Cramp of limb documented in this encounter Discontinued Medications Medication Sig Discontinue Reason Start Date End Da te atorvastatin (LIPITOR) 20 mg Oral Tablet Take 20 mg by mouth daily. DELETE-Duplicate 04/30/2025 methylPREDNISolone (MEDROL DOSPACK) 4 mg Oral Tablets, Dose Pack Follow package directions DELETE-Therapy completed 01/29/2025 04/30/2025 oxyCODONE (ROXICODONE) 5 mg Oral Tablet Take 1 Tablet by mouth every 4 hours as needed for Acute Pain > 3 Days Medically Necessary (R52). DELETE-Therapy completed 12/11/2024 04/30/2025 documented as of this encounter Additional Health Concerns Assessment Noted Time A fall risk assessment has been complete d for the patient 04/30/2024 7:59 AM EST documented as of this encounter Care Teams Special Librarian Relationship Specialty Start Date End Date Thor Graf MD [address] [place], [place] [id number] PCP - General 06/12/09 Lady Armendariz, RN Oncology Nurse Navigator 11/13/24 documented as of this encounter
--- NOTE | 2025-05-07 21:21 | [facility].EDGENADL ---
Discharge Plan Prescriptions Prescriptions: No Action azithromycin [Zithromax Z-Jose] 250 mg tablet See Rx Instructions .ROUTE .COMPLEX 5 Days Qty: 6 0RF Rx Instructions: For 250 mg dose pack: take 500 mg today (day 1), then 250 mg for 4 days (days 2-5) methylprednisolone [Medrol (Jose)] 4 mg tablets,dose pack See Rx Instructions .Route .COMPLEX 6 Days Qty: 21 0RF Rx Instructions: taper pack; Referrals Follow up/Referrals: Thor Graf [Primary Care Provider, Medical] - See instructions Print Language Print Language: Chinese Discharge ED Provider: Deloris Goodman Adult HPI General Stated complaint: Possible blood clot left knee Time Seen by Provider: 05/07/25 21:18 Related Data Previous Rx's ?Medication ?Instructions ?Recorded azithromycin 250 mg tablet See Rx Instructions PO .COMPLEX 5 04/19/22 (Zithromax Z-Jose) days #6 tabs methylprednisolone 4 mg tablets in See Rx Instructions .Route 04/19/22 a dose pack (Medrol (Jose)) .COMPLEX 6 days #21 tabs Allergies Allergy/AdvReac Type Severity Reaction Status Date / Time No Known Allergies Allergy Verified 03/29/19 10:04 [facility] Disclaimer: The information contained in this section may have been updated after the patient was seen, as this information can be updated by other users. Surgical History (Updated 04/19/22 @ 13:14 by Alix Tran RN) History of shoulder surgery History of hernia repair History of knee surgery Social History (Updated 04/19/22 @ 13:14 by Alix Tran RN) Smoking Status: Unknown if ever smoked second hand exposure: No alcohol intake: never current occupational status: other Travel in the last 8 weeks?: None housing: house Medical Decision Making Medical Records Screening: Per USPSTF and CDC recommendations, given the prevalence of disease in our region, it is our hospital?s policy to screen for HIV and viral Hepatitis for all patients aged 18 and over and those with ongoing risk factors.
--- OUTSIDE RECORDS SUMMARY | 2025-05-07 21:23 | XMS_ITS | Clinical Summary ---
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 SCREENING (04/04/2017 8:41 AM EST) Pathologist [facility] Hep C Ab Negative Negative 04/05/2017 8:32 AM EST [facility] Blood VENOUS BLOOD / Unknown Venipuncture / Unknown 04/04/2017 8:41 AM EST 04/04/2017 8:41 AM EST us Thor Graf MD HEMATOLOGY ORDERABLES Final Re sult [facility] Organization Address City/State/ZIP Co de Phone Number [facility] [address] [address] from Last 3 Months or Most Recently Relevant to Health Maintenance Insurance MEDICARE [place] PART A AND B MEDICARE IN PART A AND B MEDICARE [place] PART A AND B Member Subscriber Plan / Payer (Ef fective 2016-Present) Name:Wild Chadwick Sr. Member ID:[id number] Relation to Subscriber:Self Name:Franciscoолег Wild Sr. Subscriber ID:[id number] Payer ID:Not on file Group ID:Not on file Type:Not on file Address: [address] MEDICARE IN PART A AND B MEDICARE [place] PART A AND B Member Subscriber Plan / Payer ( fective 2016-Present) Name:Wild Chadwick Sr. Member ID:[id number] Relation to Subscriber:Self Name:Wild Chadwick Sr. Subscriber ID:[id number] Payer ID:Not on file Group ID:Not on file Type:Not on file Address: [address] [place] [id number] [employer] [facility] Advance Directives For more information, please contact: [phone] * Full Code (Latest Code Status on File) Date Activated Date Inactivated Comments 12/11/2024 7:46 AM 12/14/2024 3:28 PM Care Teams Ms Sql Developer Relationship Specialty Start Date End Date Thor Graf MD [address] [place], [place] [phone] PCP - General 06/12/09 Lady Armendariz, RN Oncology Nurse Navigator 11/13/24
--- OUTSIDE RECORDS SUMMARY | 2025-05-07 21:23 | XMS_ITS | Encounter Summary ---
Author Organization [place] [address] Care Team Providers Care Rod Welder Name Role Phone Thor Graf MD Primary Care Provider [phone] Lady Armendariz RN Unavailable [phone] Encounter Details Date Type Department Care Team (Latest Contact Info) Description 03/20/2025 Results Follow-Up SEP Gen Surg [facility] [address] [facility] [address] [place] [address] Maryanne Alvarez L, MANAGER BUSINESS BANKING [address] [facility] [address] [place], [place] [id number] CARCINOEMBRYONIC ANTIGEN Social History Tobacco Use Types Packs/Day Years [...] from your doctor or pharmacy? Never 11/27/2024 [facility] Utilities Answer Date Recorded In the past 12 months has [employer], gas, oil, or water company threatened to [...] than three times a week 11/27/2024 Attends Yazidi Services Not on file 11/27 Active Member [...] Date Recorded PHQ-2 Total Score 0 12/11/2024 [facility] [place] of Occupat ional Health - Occupational Stress [...] time in the past 12 m [facility], were you homeless or living in a fpc (including now)? No 11/27/2024 [facility] IP Transportation Answer D ate Recorded In [...] 11/29/2024 7:48 AM EDAnson Blank CCMA * Is the person blind or [...] Anson Bashir CCMA documented in this encounter Miscellaneous Notes * Telephone Encounter - Enriqueta Pro - 03/20/2025 9:45 AM EST Patient called back. Informed him CEA was normal. He verbalized understanding documented in this encounter Plan of Treatment Upcoming Encounters Date Type Department Care Team (Late st Contact Info) Description 06/25/2025 8:45 AM EST Appointment [facility] [address] 06/25/2025 9:00 AM EST Appointment [facility] [place] [address] Jose Pretty MD [address] [place] [address] DR [address] [place] [address] documented as of this encounter Goals Goal Patient Goal Type Associated Problems Recent Progress Patient-Stated? Author Maintain a healthy diet, exercise regularly and maintain an ideal body weight General No Nakita Lewis S, RMA documented as of this encounter Visit Diagnoses Not on filedocumented in this encounter Additional Health Concerns Assessment Noted Time A fall risk assessment has been complete d for the patient 04/30/2024 7:59 AM EST documented as of this encounter Care Teams Rod Welder Relationship Specialty Start Date End Date Thor Graf MD [address] [facility] [place] [phone] PCP - General 06/12/09 Lady Armendariz, RN Oncology Nurse Navigator 11/13/24 documented as of this encounter
--- OUTSIDE RECORDS SUMMARY | 2025-05-07 21:23 | XMS_ITS | Encounter Summary ---
Author Organization [place] [address] Care Team Providers Care Dumping Machine Operator Name Role Phone Thor Graf MD Primary Care Provider [phone] Lady Armendariz RN Unavailable [phone] Reason for Visit * Reason Comments Oncology Nurse Navigation Care coordinat ion followup Encounter Details Date Type Department Care Team (Latest Contact Info) Description 03/26/2025 Patient Outreach [facility] [place] [address] Lady Armendariz, RN Oncology Nurse Navigation (Care coordination followup) Social History Tobacco Use Types Packs/Day Years [...] from your doctor or pharmacy? Never 11/27/2024 [facility] Utilities Answer Date Recorded In the past 12 months has [employer], gas, oil, or water company threatened [...] than three times a week 11/27/2024 Attends Yazdanism Services Not on file 11/27 Active Member [...] Date Recorded PHQ-2 Total Score 0 12/11/2024 [facility] - Occupational Stress Questionnaire Answer Date [...] any time in the past 12 m [facility], were you homeless or living in a [place] health care facility (including now)? No 11/27/2024 [facility] IP Transportation Answer D ate Recorded In [...] Author No 11/29/2024 7:48 AM EDT Anson Lancaster, CCMA * Because of a physical, mental or emotional condition, does this person have difficulty doing errands alone such as visiting a doctor's office or shopping? Answer Date of Assessment Author No 11/29/2024 7:48 AM EDT Anson Lancaster CCMA documented as of this encounter Mental Status * Because of a physical, mental or emotional condition, does this person have serious difficulty concentrating, remembering or making decisions? Answer Entry Date Author No 11/29/2024 7:48 AM EDT Anson Lancaster, CCMA documented in this encounter Progress Notes * Lady Armendariz RN - 03/26/2025 3:18 PM EST Navigation Assessment Chief complaint: Chief Complaint Patient presents with Oncology Nurse Navigation Care coordination followup Current Status: Active Diagnosis: Colorectal Cancer Visit Type: Other Reason: Coordination of Care;Follow-Up Assessment: Home / Family / Social Family concerns Intervention: Pt has not agreed to a referral to genetic counseling. Treatment Treatment decisions Intervention: NN will route to GI for colonoscopy in October 2025. Follow-up Plan Other PCP 05/01 Onc NN will continue to follow patient. documented in this encounter Miscellaneous Notes * Telephone Encounter - Lucio Maza MD PHD - 04/02/2025 7:58 PM EST Can you forward this to whomever takes care of database calls? Thanks! documented in this encounter Plan of Treatment Upcoming Encounters Date Type Department Care Team (Late st Contact Info) Description 06/25/2025 8:45 AM EST Appointment [facility] [place] [address] 06/25/2025 9:00 AM EST Appointment [facility] [place] [address] Jose Pretty MD [address] [place] [address] [address] [place] [address] documented as of this encounter [...] documented as of this encounter Care Teams Dumping Machine Operator Relationship Specialty Start Date End Date Thor Graf MD [address] [facility] [place] [phone] PCP - General 06/12/09 Lady Armendariz, RN Oncology Nurse Navigator 11/13/24 documented as of this encounter
--- OUTSIDE RECORDS SUMMARY | 2025-05-07 21:23 | XMS_ITS | Encounter Summary ---
Author Organization [place] [address] Care Team Providers Care Butter Printer Name Role Phone Thor Graf MD Primary Care Provider [phone] Lady Armendariz RN Unavailable [phone] Encounter Details Date Type Department Care Team (Latest Contact Info) Description 05/02/2025 Results Follow-Up [facility] [place] [address] [place] [address] Thor Graf MD [address] [place] [address] COMPREHENSIVE METABOLIC PANEL, CBC WITH DIFF, PROSTATE SPECIFIC ANTIGEN (SCREENING), LIPID SCREEN Social History Tobacco Use Types Packs/Day Years [...] from your doctor or pharmacy? Never 11/27/2024 [facility] Utilities Answer Date Recorded [...] than three times a week 11/27/2024 Attends Yarsani Services Not on file 11/27 Active Member [...] Date Recorded PHQ-2 Total Score 0 12/11/2024 [facility] [place] of Occupat ional Health - Occupational Stress [...] any time in the past 12 m [facility], were you homeless or living in a senior care (including now)? No 11/27/2024 [facility] IP Transportation Answer D ate Recorded In [...] documented in this encounter Progress Notes * Thor Graf MD - 05/02/2025 7:28 AM EST Labs ok, PSA normal, Total Cholesterol good. LDL 79 No new changes from my perspective. documented in this encounter Plan of Treatment Upcoming Encounters Date Type Department Care Team (Late st Contact Info) Description 06/25/2025 8:45 AM EST Appointment [place] [address] 06/25/2025 9:00 AM EST Appointment [facility] [place] [address] Jose Pretty MD [address] [place] [address] [address] [place] [address] documented as of this encounter [...] documented as of this encounter Care Teams Butter Printer Relationship Specialty Start Date End Date Thor Graf MD [address] [facility] [place] [phone] PCP - General 06/12/09 Lady Armendariz, RN Oncology Nurse Navigator 11/13/24 documented as of this encounter
--- OUTSIDE RECORDS SUMMARY | 2025-05-07 21:23 | XMS_ITS | Encounter Summary ---
Author Organization [place] [address] Care Team Providers Care Educational Administrator Name Role Phone Thor Graf MD Primary Care Provider [phone] Lady Armendariz RN Unavailable [phone] Encounter Details Date Type Department Care Team (Late st Contact Info) Description 08/02/2018 Lab Requisition [facility] [place] [id number] Daniel Lee MD [address] [place], [place] [id number] Dysphagia; Esophageal obstruction; Diaphragmatic hernia without obstruction or gangrene Social History Tobacco Use Types Packs/Day Years Used Date Smoking Tobacco: Never Smokeless Tobacco: Never Alcohol Use Standard Drinks/Week Comments Yes 0 (1 standard drink = 0.6 oz pur e alcohol) occ Sex and Gender Information Value Date Recorded Sex Assigned at Not on file Legal Sex Male 2:28 PM EDT Gender Identity Not on file Sexual Orientation Not on file documented as of this encounter Functional Status * Is the person deaf or does he/she have serious difficulty hearing? Answer Date of Assessment Author No 06/30/2018 10:35 AM Leigha Thomas CCMA * Is the person blind or does he/she have serious difficulty seeing even when wearing glasses? Answer Date of Assessment Author No 06/30/2018 10:35 AM Leigha Thomas CCMA * Does this person have serious difficulty walking or climbing stairs? Answer Date of Assessment Author No 06/30/2018 10:35 AM Leigha Thomas CCMA * Does this person have difficulty dressing or bathing? Answer Date of Assessment Author No 06/30/2018 10:35 AM Leigha Thomas CCMA * Because of a physical, mental or emotional condition, does this person have difficulty doing errands alone such as visiting a doctor's office or shopping? Answer Date of Assessment Author No 06/30/2018 10:35 AM Leigha Thomas CCMA documented as of this encounter Mental Status * Because of a physical, mental or emotional condition, does this person have serious difficulty concentrating, remembering or making decisions? Answer Entry Date Author No 06/30/2018 10:35 AM Leigha Thomas CCMA documented in this encounter Plan of Treatment Upcoming Encounters Date Type Department Care Team (Late st Contact Info) Description 06/25/2025 8:45 AM EST Appointment [place] [address] 06/25/2025 9:00 AM EST Appointment [facility] [place] [phone] Jose Pretty MD [address] [place] [address] [place] [address] documented as of this encounter Goals Goal Patient Goal Type Associated Problems Recent Progress Patient-Stated? Author Maintain a healthy diet, exercise regularly and maintain an ideal body weight General No Nakita Lewis, VICK documented as of this encounter Procedures Procedure Name Priority Date/Time Associated Diagnosis Comments PATHOLOGY TISSUE REQUEST Routine 08/02/2018 10:40 AM EDT Dysphagia Esophageal obstruction Diaphragmatic hernia without obstruction or gangrene documented in this encounter Results * PATHOLOGY TISSUE REQUEST (08/02/2018 10:40 AM EDT) CASE REPORT Surgical Pathology Case: [id number] Authorizing Provider: Daniel Lee MD Collected: 08/02/2018 1040 Pathologist: Christi Guerrero MD Received: 08/02/2018 7292 Specimen: Esophagus, Lower third and middle third of esophagus bx 08/03/2018 10:45 AM EDT [facility] CLINICAL HISTORY Dysphagia. 08/03/2018 10:45 AM EDT [facility] FINAL DIAGNOSIS Mid and distal esophagus, biopsy: - Squamous mucosa with eosinophils, see comment. - Negative for dysplasia or malignancy. Comment: Sections show up to 12 eosinophils in some high power fam. It is not possible to differentiate mid esophagus from distal esophagus. The differential includes reflux and eosinophilic esophagitis. 08/03/2018 10:45 AM EDT [facility] at 1045 EDT COMMENT 08/03/2018 10:45 AM EDT [facility] GROSS DESCRIPTION Received in formalin labeled with the patient s name and mid and distal esophageal biopsy is a single fragment of barnett tissue, 0.5 cm in greatest dimension. Entirely submitted in one cassette. /ZN 08/03/2018 10:45 AM EDT [facility] MICROSCOPIC DESCRIPTION Microscopic examination is performed and the findings corroborate the diagnosis. 08/03/2018 10:45 AM EDT [facility] SPECIAL STAINS 08/03/2018 10:45 AM EDT [facility] EMBEDDED IMAGES 08/03/2018 10:45 AM EDT [facility] Tissue SPECIMEN FROM ESOPHAGUS / Unknown 08/02/2018 10:40 AM EDT 08/02/2018 4:09 PM EDT Daniel Lee MD PATHOLOGY ORDERABLES Final Result Performing Organization Address City/State/[facility] Co de Phone Number [facility] [address] [place] [address] documented in this encounter Visit Diagnoses Diagnosis Dysphagia Dysphagia, unspecified Esophageal obstruction Stricture and stenosis of esophagus Diaphragmatic hernia without obstruction or gangrene Diaphragmatic hernia without mention of obstruction or gangrene documented in this encounter Additional Health Concerns Infection Onset Date Last Indicated Resolved Time INFLUENZA 06/16/2022 06/16/2022 07/01/2022 10:1 3 PM EST COVID-19 06/16/2022 06/16/2022 07/06/2022 10:1 2 PM EST INFLUENZA 03/16/2024 03/16/2024 03/30/2024 10:1 3 PM EST INFLUENZA 06/26/2024 06/26/2024 07/10/2024 10:1 2 PM EST Assessment Noted Time A fall risk assessment has been complete d for the patient 01/30/2018 4:14 PM EDT documented as of this encounter Care Teams Educational Administrator Relationship Specialty Start Date End Date Thor Graf MD [address] [place], [place] [phone] PCP - General 06/12/09 Lady Armendariz, RN Oncology Nurse Navigator 11/13/24 documented as of this encounter
--- OUTSIDE RECORDS SUMMARY | 2025-05-07 21:23 | XMS_ITS | Encounter Summary ---
Author Organization [place] [address] Care Team Providers Care Assistant Professor Name Role Phone Thor Graf MD Primary Care Provider [phone] Lady Armendariz RN Unavailable [phone] Encounter Details Date Type Department Care Team (Late st Contact Info) Description 08/02/2018 Orders Only [facility] G[facility] [address] [facility] [address] [place] [id number] Daniel Lee MD [address] [place] [address] Social History Tobacco Use Types Packs/Day Years [...] Author No 06/30/2018 10:35 AM Leigha Thomas CCMCarson * Because of a physical, mental or emotional condition, does this person have difficulty doing errands alone such as visiting a doctor's office or shopping? Answer Date of Assessment Author No 06/30/2018 10:35 AM Leigha Thomas CCMCarson documented as of this encounter Mental Status * Because of a physical, mental or emotional condition, does this person have serious difficulty concentrating, remembering or making decisions? Answer Entry Date Author No 06/30/2018 10:35 AM Leigha Thomas CCMCarson documented in this encounter Plan of Treatment Upcoming Encounters Date Type Department Care Team (Late st Contact Info) Description 06/25/2025 8:45 AM EST Appointment [place] [address] 06/25/2025 9:00 AM EST Appointment [facility] [place] [phone] Jose Pretty MD [address] [place] [address] [address] [place] [address] documented as of this encounter Goals Goal Patient Goal Type Associated Problems Recent Progress Patient-Stated? Author Maintain a healthy diet, exercise regularly and maintain an ideal body weight General No Nakita Lewis, RMA documented as of this encounter Procedures Procedure Name Priority Date/Time Associated Diagnosis Comments [facility] EGD Routine 08/02/2018 10:40 AM EDT documented in this encounter Results * [facility] EGD (08/02/2018 10:40 AM EDT) 08/02/2018 10:[address] [facility] - 08/04/2018 6:32 AM EDT Normal duodenum. Stricture in the gastroesophageal junction. (Dilation). Hiatal Hernia. Grade 2 esophagitis in the lower third of the esophagus compatible with esophagitis. (Biopsy). Plan: Follow-up as needed This section is an excerpt of the full report. us Daniel Lee MD GI PROCEDURE ORDERABLES Tomas anna Result - Final [facility] [address] [place] [address] documented in this encounter Visit Diagnoses Not on filedocumented in this encounter Additional Health Concerns Infection [...] documented as of this encounter Care Teams Assistant Professor Relationship Specialty Start Date End Date Thor Graf [place] [address] [place] [address] PCP - General 06/12/09 Lady Armendariz, RN Oncology Nurse Navigator 11/13/24 documented as of this encounter
--- OUTSIDE RECORDS SUMMARY | 2025-05-07 21:23 | XMS_ITS | Encounter Summary ---
Author Organization [place] [address] Care Team Providers Care Systems Checkout Mechanic Name Role Phone Thor Graf MD Primary Care Provider [phone] Lady Armendariz RN Unavailable [phone] Encounter Details Date Type Department Care Team (Late Contact Info) Description 02/26/2025 Results Follow-Up [facility] [place] [address] [place] [address] Thor Graf MD [address] [place] [address] LIPID PANEL REFLEX Social History Tobacco Use Types Packs/Day Years [...] from your doctor or pharmacy? Never 11/27/2024 [facility] Utilities Answer Date Recorded In the past [...] Date Recorded PHQ-2 Total Score 0 12/11/2024 [facility] [place] of Occupat ional Health - Occupational Stress [...] any time in the past 12 m [facility], were you homeless or living in a fci (including now)? No 11/27/2024 [facility] IP Transportation Answer D ate Recorded [...] 7:48 AM EDT Anson Lancaster CCMA documented in this encounter Progress Notes * Thor Graf MD - 02/26/2025 8:48 AM EDT Cholesterol much improved. LDL down from 161 to 79., documented in this encounter Plan of Treatment Upcoming Encounters Date Type Department Care Team (Daysi Contact Info) Description 06/25/2025 8:45 AM EST Appointment [place] [place] [address] 06/25/2025 9:00 AM EST Appointment [facility] [place] [place] [address] Jose Pretty MD [address] [facility] [address] [address] [place] [address] documented as of this encounter [...] documented as of this encounter Care Teams Systems Checkout Mechanic Relationship Specialty Start Date End Date Thor Graf MD [employer] [facility] [place] [phone] PCP - General 06/12/09 Lady Armendariz, RN Oncology Nurse Navigator 11/13/24 documented as of this encounter
--- OUTSIDE RECORDS SUMMARY | 2025-05-07 21:24 | XMS_ITS | Referral Summary ---
Author Organization [employer] ([place], [place], [place], [place], [place]) Address [address] [place] [address] Care Team Providers Care Manager Transmission Name Role Phone [facility] Amina, Find-A-Doc Primary Care Provider Gabriella Sheikh MD Unavailable Encounters Date Type Department Care Team Description 03/04/2025 Travel 03/04/2025 9:30 AM EDT Office Visit [facility] Cardiology [address] [place] [address] Gabriella Sheikh MD Dyspnea on exertion (Primary Dx); Dyslipidemia; Bilateral carotid artery stenosis; Malignant neoplasm of colon, unspecified part of colon (HCC); Class 1 obesity due to excess calories with body mass index (BMI) of 34.0 to 34.9 in adult, unspecified whether serious comorbidity present; Elevated blood pressure reading from Last 3 Months Allergies No known active allergies Medications acetaminophen (TYLENOL) 650 MG CR tablet Take 2 tablets (1,300 mg total) by mouth 2 (two) times daily as needed. Active omeprazole (PriLOSEC) 40 MG capsule Take 1 capsule (40 mg total) by mouth 2 (two) times daily. 5 Active fluticasone propionate (FLONASE) 50 mcg/actuation nasal spray Administer 1 spray into affected nostril(s). Active aspirin 81 MG EC tablet Take 1 tablet (81 mg total) by mouth daily. Active cetirizine (ZyrTEC) 10 MG chewable tablet Take 1 tablet (10 mg total) by mouth daily. Active meloxicam (MOBIC) 7.5 MG tablet Take 1 tablet (7.5 mg total) by mouth daily with lunch. Active atorvastatin (LIPITOR) 40 MG tabletIndicatio ns:Dyslipidemia Take 1 tablet (40 mg total) by mouth nightly. 90 tablet 3 Active Active Problems No known active problems Social History Tobacco Use Types Packs/Day Years Used Date Smoking Tobacco: Never Smokeless Tobacco: Never Tobacco Cessation:Counseling Given: Not Answered Alcohol Use Standard Drinks/Week Comments Not Currently 0 (1 standard drink = 0.6 oz pur e alcohol) Sex and Gender Information Value Date Recorded Sex Assigned at Not on file Legal Sex Male 2:36 PM CDT Gender Identity Not on file Sexual Orientation Not on file Last Filed Vital Signs Vital Sign Reading Time Taken Comments Blood Pressure 132/58 03/04/2025 9:25 AM EDT Pulse 76 03/04/2025 9:25 AM EDT Temperature - - Respiratory Rate 20 03/04/2025 9:25 AM EDT Oxygen Saturation 98% 03/04/2025 9:25 AM EDT Inhaled Oxygen Concentration - - Weight 102.6 kg (226 lb 3.2 oz) 03/04/2025 9:25 AM EDT Height 172.7 cm (5' 8 ) 03/04/2025 9:25 AM EDT Body Mass Index 34.39 03/04/2025 9:25 AM EDT Plan of Treatment Not on file Procedures Procedure Name Priority Date/Time Associated Diagnosis Comments FS_MODEL_IP_ECG 12-LEAD Routine 03/04/2025 9:21 A M EDT Dyspnea on exertion from Last 3 Months Results * ECG 12 lead (03/04/2025 9:21 AM EDT) Gabriella Sheikh MD ECG ORDERABLES Final Result from Last 3 Months Insurance [facility] MEDICARE PART A B Care Teams Manager Transmission Relationship Specialty Start Date End Date [facility] Connection, Find-A-Doc [facility] [place] [address] PCP - General 11/14/24 Gabriella Sheikh MD [address], [facility] [address] [place] [address] Interventional Cardiology 11/29/24
--- OUTSIDE RECORDS SUMMARY | 2025-05-07 21:24 | XMS_ITS | Clinical Summary ---
Author Organization [employer] ([place], [place], [place], [place], [place]) Address [address] [place] [address] Care Team Providers Care Phlebotomy Tech Name Role Phone [facility] Connection, Find-A-Doc Primary Care Provider Gabriella Sheikh MD Unavailable Allergies No known active allergies Medications acetaminophen [...] mg total) by mouth daily with lunch. 5 Active atorvastatin (LIPITOR) 40 MG tabletIndicatio ns:Dyslipidemia Take 1 tablet (40 mg total) by mouth nightly. 90 tablet 3 5 Active Active Problems No known active problems Encounters Date Type Department Care Team Description 03/04/2025 9:30 AM EDT Office Visit [facility] Cardiology [address] [place] [address] Gabriella Sheikh MD Dyspnea on exertion (Primary Dx); Dyslipidemia; Bilateral carotid artery stenosis; Malignant neoplasm of colon, unspecified part of colon (HCC); Class 1 obesity due to excess calories with body mass index (BMI) of 34.0 to 34.9 in adult, unspecified whether serious comorbidity present; Elevated blood pressure reading 03/04/2025 Travel from Last 3 Months Family History Medical History Relation Name Comments Heart disease Brother Cancer Father Heart disease Father Crohn's disease Mother Relation Name Status Comments Brother Father Mother Social History Tobacco Use Types Packs/Day [...] 03/04/2025 9:25 AM EDT Plan of Treatment Health Maintenance Due Date Last Done Comments CT Colonography 1950 Colonoscopy 1950 Colorectal Cancer Screening 1950 FOBT/FIT 1950 Fit-DNA (Cologuard) 1950 Sigmoidoscopy 1950 Depression Screening (12+) 1963 Hepatitis C Screening 08/11/1969 Shingles Vaccine (Zoster) (1 of 2) 08/11/2001 Respiratory Syncytial Virus (RSV) Adult or (1 - Risk 60-74 years 1-dose series) 2011 Medicare Initial AWV G0438 07/15/2017 Falls Risk Screening 05/16/2024 DTAP/TDAP/TD VACCINES (3 - T d or Tdap) 11/18/2024 11/18/2014, 07/21/1996 COVID-19 VACCINE ( - 2024-2 6 season) 2025 04/01/2021, 07/27/2020, 06/29/2020 Tobacco Cessation Counseling and Screening (12+) 03/04/2026 03/04/2025 Pneumococcal 50+ years Completed 04/28/2023, 2018 Influenza Vaccine Completed 02/25/2025, , 04/28/2023, Additional history exists Procedures Procedure Name Priority Date/Time Associated Diagnosis Comments FS_MODEL_IP_ECG 12-LEAD Routine 03/04/2025 9:21 A M EDT Dyspnea on exertion from Last 3 Months Results * ECG 12 lead (03/04/2025 9:21 AM EDT) us Gabriella Sheikh MD ECG ORDERABLES Final Result from Last 3 Months Insurance [facility] MEDICARE PART A B Care Teams Phlebotomy Tech Relationship Specialty Start Date End Date [facility] Connection, Find-A-Doc [facility] [place] [address] PCP - General 11/14/24 Gabriella Sheikh MD [address], [facility] [address] [place] [address] Interventional Cardiology 11/29/24
--- OUTSIDE RECORDS SUMMARY | 2025-05-07 21:24 | XMS_ITS | Encounter Summary ---
Author Organization [facility] Address [address] [place] [address] Care Team Providers Care Tool Grinder Operator Surface Name Role Phone Thor Graf MD Primary Care Provider [phone] Chip Malhotra MD Unavailable [phone] Encounter Details Date Type Department Care Team (Latest Contact Info) Description 03/02/2018 Preop Surgical Orders [facility] Physicians - Orthopaedics & Sports Medicine, [place] [address] [place] [address] Chip Malhotra MD [address] [place] [address] Primary osteoarthritis of left knee (Primary Dx) Social History Tobacco Use Types Packs/Day Years Used Date Smoking Tobacco: Never Smokeless Tobacco: Never Alcohol Use Standard Drinks/Week Comments No 0 (1 standard drink = 0.6 oz pur e alcohol) Sex and Gender Information Value Date Recorded Sex Assigned at Not on file Legal Sex Male 9:25 AM EDT Gender Identity Not on file Sexual Orientation Not on file documented as of this encounter Plan of Treatment Not on file documented as of this encounter Results * ROUTINE URINE CULTURE (04/03/2018 9:40 PM EST) Culture Result: No Growth [facility] EXTER[facility] Urine (Bladder) 04/03/2018 9 :40 PM EST 04/04/2018 10:04 AM EST Chip Malhotra MD MICROBIOLOGY - NON-BLOOD FLUI DS AND OTHER Final Result Performing Organization Address [facility] de Phone Number [facility] [address] * (ABNORMAL) URINALYSIS W/ REFLEX TO MICROSCOPIC (04/03/2018 11:28 AM EST) Color, UA Yellow Straw,Yellow [facility] EXT ERNAL LAB Clarity, UA Clear Clear [facility] EXTE RNAL LAB Spec Grav, UA 1.020 1.005 - 1.035 [facility] EXTERNAL [facility] pH, Urine 6.0 5.0 - 8.0 [facility] SECURITY INVESTIGATOR AL LAB Protein, UA Trace(A) Negative mg/dL [facility] EX[facility] Glucose, UA Negative Negative mg/dL [facility] Ketones, UA Negative Negative mg/dL [facility] EX[facility] Bilirubin, UA Negative Negative [facility] EX TERNAL [facility] Blood, UA Negative Negative [facility] SECURITY INVESTIGATOR [facility] Nitrite, UA Negative Negative [facility] EXTE RNAL LAB Urobilinogen, UA 0.2 0.2 - 1.0 EU/dL [facility] EXTERNAL [facility] Leukocyte esterase UA Negative Negative [facility] EXTERNAL [facility] RBC, UA 1 0 - 3 /HPF [facility] EXTER NAL LAB WBC <1 /HPF 0 - 5 /HPF [facility] EXTER NAL LAB Urine (Urine) 04/03/2018 11: 28 AM EST 04/03/2018 4:35 PM EST Chip Malhotra MD URINE ORDERABLES Final Result Performing Organization Address [facility] de Phone Number [facility] [address] * CBC (COMPLETE BLOOD COUNT) (04/03/2018 10:44 AM EST) WBC 6.6 3.8 - 10.8 10*3/uL [facility] EXTERNAL [facility] RBC 5.06 4.20 - 5.80 10*6/uL [facility] EX[facility] Hemoglobin 15.8 13.2 - 17.1 g/dL [facility] EXTERNAL [facility] Hematocrit Blood 45.8 38.5 - 50.0 % [facility] EX[facility]NAL [facility] MCV 90.4 80.0 - 100.0 fL [facility] MCH 31.3 27.0 - 33.0 pg [facility] MCHC 34.6 32.0 - 36.0 g/dL [facility] RDW 13.1 11.0 - 15.0 % [facility] Platelets 264 140 - 400 10*3/uL [facility] MPV 9.1 7.5 - 11.5 fL [facility] Whole Blood 04/03/2018 10:4 4 AM EST 04/03/2018 4:35 PM EST us Chip Malhotra MD HEMATOLOGY ORDERABLES Final R esult [facility] [address] documented in this encounter Visit Diagnoses Diagnosis Primary osteoarthritis of left knee- Primary Primary localized osteoarthrosis, lower leg documented in this encounter Care Teams Tool Grinder Operator Surface Relationship Specialty Start Date End Date Thor Graf MD [address] [place] [address] [place] [address] PCP - General Internal Medicine 11/29/17 Chip Malhotra MD [address] [place] [address] Orthopedic Surgery 05/23/22 documented as of this encounter
--- OUTSIDE RECORDS SUMMARY | 2025-05-07 21:24 | XMS_ITS | Clinical Summary ---
Author Organization [facility] Address [address] [place] [address] Care Team Providers Care Community Service Specialist Name Role Phone Thor Graf MD Primary Care Provider [phone] Chip Malhotra MD Unavailable [phone] Allergies No known active allergies Medications Acetaminophen (TYLENOL ARTHRITIS PAIN) 650 mg Tablet Sustained Release Take 1,300 mg by mouth 2 times daily as needed for Pain. Active fluticasone (FLONASE) 50 mcg/actuation nasal spray [place] 1 [place] into nose daily as needed. Active meclizine (ANTIVERT) 25 mg tablet Take 25 mg by mouth daily as needed. Active meloxicam (MOBIC) 15 mg tabletIndications:P rimary osteoarthritis of left knee,Status post total left knee replacement,Other acute postprocedural pain Take 1 Tab by mouth daily. Hold for 2 weeks post op 30 Tab 8 Active amoxicillin (AMOXIL) 500 mg capsule Take 4 pills 1 hour prior to dental appointment . 8 Cap 1 9 Active Active Problems Problem Noted Date Diagnosed Date Arthritis of knee 04/12/2018 Primary osteoarthritis of left knee 11/29/2017 Vertigo Family History Medical History Relation Name Comments Heart Problems Brother stents Cancer Father Heart Problems Father mi Anesthesia Complications Neg Hx Relation Name Status Comments Brother Father Social History Tobacco Use Types Packs/Day Years Used Date Smoking Tobacco: Never Smokeless Tobacco: Never Alcohol Use Standard Drinks/Week Comments Yes 0 (1 standard drink = 0.6 oz pur e alcohol) occ beer only 3 in last year Sex and Gender Information Value Date Recorded Sex Assigned at Not on file Legal Sex Male 9:25 AM EDT Gender Identity Not on file Sexual Orientation Not on file Last Filed Vital Signs Vital Sign Reading Time Taken Comments Blood Pressure 127/56 04/13/2018 11:44 AM EST Pulse 77 04/13/2018 11:44 AM EST Temperature 36.8 C (98.3 F) 04/13/2018 11:44 AM EST Respiratory Rate 16 04/13/2018 11:44 AM EST Oxygen Saturation 97% 04/13/2018 11:44 AM EST Inhaled Oxygen Concentration - - Weight 102.1 kg (225 lb) 05/25/2018 10:51 AM EST Height 172.7 cm (5' 8 ) 05/25/2018 10:51 AM EST Body Mass Index 34.21 05/25/2018 10:51 AM EST Plan of Treatment Health Maintenance Due Date Last Done Comments Cologuard 1950 Colonoscopy 1950 Colorectal Cancer Screening 1950 FIT 1951 Lipid Screening 08/11/1969 Tetanus Vaccination (Every 10 Years) 08/11/1969 Hepatitis C Virus (HCV) Screening 08/11/1972 Pneumococcal Vaccine: 50+ Years (1 of 1 - PCV) 002 Zoster-RZV(Shingrix) (1 of 2) 08/11/2001 Fall Risk Assessment 08/11/2016 Advance Care Planning 05/16/2024 Depression Screening 05/16/2024 COVID-19 Vaccine ( - 2024-26 season) 2025 Influenza Vaccination (#1) 2025 RSV Vaccines (1 - 1-dose 75+ series) 08/11/2026 Medical Devices Implanted Type Area Signing Agent Device Identifier Shelf Expiration Date Model / Serial / Lot Smartset Hv Bone Cement 40g Implanted:Qty: 2 on 04/12/2018 by Chip Malhotra MD at [facility] Left: Knee * J \T\ J DEPUY 08/14/2019 3092-040 / / [id number] Attune Tibial Insert Rotat Platform Ps Sz7 7mm Aox Implanted:Qty: 1 on 04/12/2018 by Chip Malhotra MD at [facility] Left: Knee * J \T\ J DEPUY 10/13/2022 1516-50-707 / / [id number] Attune Patella Medialized Dome 41mm Cemented Aox Implanted:Qty: 1 on 04/12/2018 by Chip Malhotra MD at [facility] Left: Knee * J \T\ J DEPUY 11/12/2022 1518-20-041 / / [id number] Attune Femoral Ps Sz7 Left Cement Implanted:Qty: 1 on 04/12/2018 by Chip Malhotra MD at [facility] [place] Left: Knee * J \T\ J DEPUY 02/13/2028 1504-10-107 / / [id number] Attune Knee System Tibial Base Rotating Platform Size 7 Cemented Implanted:Qty: 1 on 04/12/2018 by Chip Malhotra MD at [facility] [place] Left: Knee * J \T\ J DEPUY 01/14/2028 1506-80-007 / / [id number] Knee Depuy Attune Fb/Rp Implanted:Qty: 1 on 04/12/2018 by Chip Malhotra MD at [facility] [place] Left: Knee * J \T\ J DEPUY KNDEPUYATTUNE / / Knee Depuy Upchrg Aox Implanted:Qty: 1 on 04/12/2018 by Chip Malhotra MD at [facility] Left: Knee * J \T\ J DEPUY KNDEPUYAOX / / Insurance MEDICARE MEDICARE [employer] [facility] MEDICARE Advance Directives For more information, please contact: [phone] * Full Code (Latest Code Status on File) Date Activated Date Inactivated Comments 04/12/2018 5:08 PM Care Teams Community Service Specialist Relationship Specialty Start Date End Date Thor Graf MD [address] [place] [address] [place] [id number] PCP - General Internal Medicine 11/29/17 Chip Malhotra MD [address] [facility] [place] [address] Orthopedic Surgery 05/23/22
[2025-05-07 21:26] VITALS: BP 127/76; PULSE 90; RESP 18; TEMP 36.9; O2SAT 98; BMI 33.4
--- NOTE | 2025-05-07 21:34 | ED_ITS ---
Discharge Plan Disposition Patient Disposition: Home, Self-Care Condition: Good Prescriptions Prescriptions: New methocarbamol 500 mg tablet 500 mg PO TID Qty: 90 0RF No Action azithromycin [Zithromax Z-Jose] 250 mg tablet See Rx Instructions .ROUTE .COMPLEX 5 Days Qty: 6 0RF Rx Instructions: For 250 mg dose pack: take 500 mg today (day 1), then 250 mg for 4 days (days 2-5) methylprednisolone [Medrol (Jose)] 4 mg tablets,dose pack See Rx Instructions .Route .COMPLEX 6 Days Qty: 21 0RF Rx Instructions: taper pack; Referrals Follow up/Referrals: Thor Graf [Primary Care Provider, Medical] - See instructions Activity Restrictions/Add. Instructions Additional Instructions/Restrictions: Sent you with a muscle relaxer which you can take in addition to Tylenol for your symptoms. Return to the emergency department if you have continuation of bleeding in the lower leg if the leg significantly swells or you are having pain out of proportion or the leg is getting hard. Otherwise you can use heat and ice as needed for comfort. With your primary care provider or the ER if needed. Clinical Impressions Clinical Impression: Acute leg pain, Superficial bruising of lower leg Print Language Print Language: Mongolian Discharge ED Provider: Deloris Goodman Adult HPI General Chief complaint: PAIN Stated complaint: Possible blood clot left knee Time Seen by Provider: 05/07/25 21:18 Mode of Arrival: Ambulatory Source of Information: Patient Description of Symptoms (Recalled from ER Triage Doc. by RN): patient presents for ecchymosis to the left knee. patient stated that he had a really bad muscle cramp on 05/03 while going to bed. patient stated he awoke Tuesday, the following day and the pain was worse but he still went about his day. as of today, he woke up with bruising it the left knee. no mechanism of injury noted. he denies pain but does say its uncomfortable. History of Present Illness HPI narrative: Patient is a 74-year-old male with a past medical history of left knee replacement not on any blood thinners who presented to the emergency department with bruising of his left lower extremity. Patient states that he had a large [place] horse on Tuesday and on Tuesday he started having some bruising in the left leg. Patient states that he has a dull ache but does not have any associated trauma. Patient denies any history of blood clots. Patient is not on any blood thinners. Patient has taken Tylenol but no other medications. Related Data Previous Rx's ?Medication ?Instructions ?Recorded azithromycin 250 mg tablet See Rx Instructions PO .COM PLEX 5 04/19/22 (Zithromax Z-Jose) days #6 tabs methylprednisolone 4 mg tablets in See Rx Instructions .Route 04/19/22 a dose pack (Medrol (Jose)) .COMPLEX 6 days #21 tabs methocarbamol 500 mg tablet 500 mg PO TID #90 tabs Allergies Allergy/AdvReac Type Severity Reaction Status Date / Time No Known Allergies Allergy Verified 03/29/19 10:04 [facility] Disclaimer: The information contained in this section may have been updated after the patient was seen, as this information can be updated by other users. Surgical History (Updated 04/19/22 @ 13:14 by Alix Tran RN) History of shoulder surgery History of hernia repair History of knee surgery Social History (Updated 04/19/22 @ 13:14 by Alix Tran RN) Smoking Status: Never smoker second hand exposure: No alcohol intake: never current occupational status: other Travel in the last 8 weeks?: None housing: house Have you lived/traveled outside [place] in past 30 days?: No Contact w/someone who lives/traveled outside [place] past 30 days?: No Exposure to someone with infectious disease in past 14 days?: No Do you have a fever (greater than 100.4 F or 38 C)?: No Have you tested positive for COVID-19?: No Exposed to someone with COVID-19 in past 14 days?: No Do you have a sore throat?: No Do you have a cough?: No Do you have any weakness?: No Do you have any diarrhea?: No Are you experiencing any unusual bleeding?: No Do you have any muscle aches/pain?: No Do you have any abdominal pain?: No Are you experiencing loss of taste or smell?: No ROS Obtained: Yes All systems reviewed & no additional complaints except as documented and Yes Systems reviewed as appropriate & no additional complaints except as documented Physical Exam General General appearance: alert and in no apparent distress Head Head exam: atraumatic, normocephalic and normal inspection Eye Eye exam: Present normal appearance, PERRL and EOMI; Absent scleral icterus ENT ENT exam: Present normal exam and normal external ear exam Neck Neck exam: Present normal inspection and full ROM Chest Chest inspection: Present normal inspection and symmetric chest wall rise Respiratory Respiratory exam: Present normal lung sounds bilaterally; Absent respiratory distress or wheezes Cardiovascular Cardiovascular exam: Present regular rate, normal rhythm, normal heart sounds and other (palpable pulse DP in the LLE) Abdominal Exam Abdominal exam: Present soft and distention; Absent tenderness, guarding or rebound Extremities Exam Extremities exam: Present normal inspection, full ROM and other (LLE: no tenderness posterior calf or posterior to the knee) Back Exam Back exam: Present normal inspection and full ROM Neurological Exam Neurological exam: Present alert and oriented X3 Psychiatric Psychiatric exam: Present normal affect and normal mood Skin Skin exam: Present warm, dry and other (ecchymosis of the LLE distal to the knee, at the knee and proximal thigh that appears superficial in nature) Medical Decision Making Medical Records Medical records reviewed: Yes I reviewed the patient's medical records. Screening: Per USPSTF and CDC recommendations, given the prevalence of disease in our region, it is our hospital?s policy to screen for HIV and viral Hepatitis for all patients aged 18 and over and those with ongoing risk factors. David Inquiry Pt receiving controlled substance: No Vital Signs: 05/07/25 21:26 05/07/25 22:55 05/07/25 23:00 Temperature 98.4 F Temperature Source Oral Pulse Rate 73 74 Pulse Rate [Right Radial] 90 Respiratory Rate 18 Blood Pressure Blood Pressure [Right Arm] 127/76 Blood Pressure Mean Blood Pressure Mean [Right Arm] 93 Blood Pressure Source [Right Arm] Automatic Cuff Blood Pressure Position [Right Arm] Sitting 02 Sat by Pulse Oximetry 98 95 96 Oxygen Delivery Method Room Air Room Air Room Air 05/07/25 23:00 05/07/25 23:15 05/07/25 23:30 Temperature Temperature Source Pulse Rate 72 79 Pulse Rate [Right Radial] Respiratory Rate Blood Pressure 136/72 Blood Pressure [Right Arm] Blood Pressure Mean 93 Blood Pressure Mean [Right Arm] Blood Pressure Source [Right Arm] Blood Pressure Position [Right Arm] 02 Sat by Pulse Oximetry 96 97 Oxygen Delivery Method Room Air Room Air 05/07/25 23:30 Temperature Temperature Source Pulse Rate Pulse Rate [Right Radial] Respiratory Rate Blood Pressure 131/56 L Blood Pressure [Right Arm] Blood Pressure Mean 81 Blood Pressure Mean [Right Arm] Blood Pressure Source [Right Arm] Blood Pressure Position [Right Arm] 02 Sat by Pulse Oximetry Oxygen Delivery Method Lab Data Lab results reviewed: Yes I reviewed the patient's lab results. Lab Results 05/07/25 21:22: WBC 8.2, RBC 4.44 L, Hgb 11.3 L, Hct 36.6 L, MCV 82.4, MCH 25.5 L, MCHC 30.9 L, RDW 14.9, Plt Count 286, MPV 10.2, Neut % (Auto) 60.4, Lymph % (Auto) 27.0, [place] % (Auto) 8.2, Eos % (Auto) 3.3, Baso % (Auto) 0.6, Neut # (Auto) 4.9, Lymph # (Auto) 2.2, [place] # (Auto) 0.7, Eos # (Auto) 0.3, Baso # (Auto) 0.1, PT 10.6, INR 0.95, APTT 23.3, Sodium 138, Potassium 3.5, Chloride 106, Carbon Dioxide 27, Anion Gap 8.5, BUN 14, Creatinine 0.90, Estimated Creat Clear 93, Estimated GFR 83, Est GFR ( Amer) 100, Glucose 166 H, Calcium 8.6, Total Bilirubin 0.7, AST 45, ALT 31, Alkaline Phosphatase 104, Total Protein 7.2, Albumin 4.1, Globulin 3.1, Albumin/Globulin Ratio 1.3 05/07/25 21:22 05/07/25 21:22 Orders (Tests/Meds): ED MEDICATIONS Discontinued Medications Generic Name Dose Route Start Last Admin Trade Name Freq PRN Reason Stop Dose Admin Iopamidol 120 ml 05/07/25 22:31 05/07/25 22:32 Iopamidol-370 (76%);100ml Bottle IV 05/07/25 22:32 120 ml ONCE ONE Administration Sodium Chloride 50 ml 05/07/25 22:31 05/07/25 22:32 0.9 % Sodium Chloride 50 Ml Vial IV 05/07/25 22:32 50 ml ONCE ONE Administration Sodium Chloride 10 ml 05/07/25 22:31 05/07/25 22:32 Sodium Chloride 0.9% 10ml Syr (Rad Only) IV 05/07/25 22:32 10 ml ONCE ONE Administration ORDERS Category Date Time Status CT angio LE LT Stat Cat Scan 05/07/25 21:49 Completed POCUS Point of Care (ER Only) Stat Exams 05/07/25 23:53 Completed CBC w/Auto Diff [Complete Blood Count Auto Diff] Stat Lab 05/07/25 21:22 Completed CMP [Comprehensive Metabolic Panel] Stat Lab 05/07/25 21:22 Completed INR [Prothrombin Time INR] Stat Lab 05/07/25 21:22 Completed PT/PTT Stat Lab 05/07/25 21:22 Completed Medical Decision Narrative: Patient is a 74-year-old gentleman with no significant past medical history who presents to the emergency department with bruising to the left lower extremity. Patient states that he had a large charley horse on his leg on Tuesday and then woke up Tuesday with some superficial bruising. Patient denies any other associated trauma. On arrival, patient was hemodynamically stable with unremarkable vital signs. Differential includes but not limited to: Superficial bruising, DVT, superficial clot, arterial bleeding, amongst others. On exam, patient had no significant swelling of the left lower extremity in comparison to the right. Patient did have a palpable DP pulse as well as popliteal pulse on the left. Patient did have some superficial bruising distal to the knee along the knee and on the medial distal thigh. Patient had no posterior calf tenderness or posterior knee tenderness. Patient had full range of motion of the leg. Labs were reviewed and interpreted by myself: CBC showed no leukocytosis, hemoglobin was stable. INR was normal. CTA with arterial and venous phase of the left lower extremity was obtained which showed no active extravasation venous or arterial he. There was some subcutaneous infiltration at the knee. Bedside ultrasound was performed which showed no evidence of deep vein thrombosis. At this time I felt the patient was stable and appropriate discharge. Patient stated that he has been told not to take ibuprofen that I recommend that patient take Tylenol and patient was sent with Robaxin as well. Patient was given return precautions for continued bleeding, significant pain and significant swelling or any significant hardening of the leg. Patient was otherwise discharged home. Patient was able to ambulate without difficulties patient's pain was well-controlled Critical Care Critical Care Time Critical Care Time: No
--- NOTE | 2025-05-07 21:49 | CT_ITS ---
PROCEDURE INFORMATION: Exam: CTA Left Lower Extremity With Contrast Exam date and time: 05/07/2025 10:23 PM Age: 74 years old Clinical indication: Bruising left distal femur /knee area; Additional info: Bleeding, do as cta TECHNIQUE: Imaging protocol: Computed tomographic angiography of the left lower extremity with contrast. 3D rendering (Not supervised by radiologist): MIP and/or 3D reconstructed images were created by the technologist. Radiation optimization: All CT scans at this facility use at least one of these dose optimization techniques: automated exposure control; mA and/or kV adjustment per patient size (includes targeted exams where dose is matched to clinical indication); or iterative reconstruction. Contrast material: ISOVUE; Contrast volume: 120 ml; Contrast route: INTRAVENOUS (IV); COMPARISON: No relevant prior studies available. FINDINGS: Left femoral/popliteal arteries: No occlusion or significant stenosis. Left infrapopliteal arteries: Visualized left lower extremity runoff vessels are patent without evidence for arterial phase or delayed phase extravasation except for the limitations described above. Bones/joints: No acute fracture. No dislocation. Soft tissues: Subcutaneous infiltration at the level of the knee image 5/219. Other findings: Total knee arthroplasty obscures the distal superficial femoral artery, and popliteal arteries. IMPRESSION: 1. Total knee arthroplasty obscures the distal superficial femoral artery, and popliteal arteries. 2. Subcutaneous infiltration at the level of the knee image 5/219. 3. Visualized left lower extremity runoff vessels are patent without evidence for arterial phase or delayed phase extravasation except for the limitations described above.
[2025-05-07 22:05] LABS: Hematocrit 36.6 % (42.0-52.0); Hemoglobin 11.3 g/dL (14.1-18.0); Immature Granulocytes % 0.5 %; Mean Corpuscular HGB Conc 30.9 g/dL (31.8-35.4); Mean Corpuscular Hemoglobin 25.5 pg (27.0-31.2); Mean Corpuscular Volume 82.4 fl (80-94); Nucleated Red Blood Cells % 0 %; Platelet Count 286 K/mm3 (142-424); Red Blood Count 4.44 M/mm3 (4.60-6.20); Red Cell Distribution Width-SD 45.1 fL; White Blood Count 8.2 K/mm3 (4.8-10.8)
[2025-05-07 22:07] LABS: Alanine Aminotransferase 31 U/L (12-78); Albumin Level 4.1 g/dl (3.5-5.0); Albumin/Globulin Ratio 1.3 (1.1-1.8); Alkaline Phosphatase 104 U/L (38-126); Anion Gap 8.5 mEq/L (5-15); Aspartate Amino Transferase 45 U/L (17-59); Bilirubin,Total 0.7 mg/dl (0.2-1.3); Blood Urea Nitrogen 14 mg/dl (9-20); Calcium 8.6 mg/dl (8.4-10.2); Carbon Dioxide 27 mmol/L (22.0-30.0); Chloride 106 mmol/L (98-107); Creatinine Clearance Estimated 93 mL/min (50-200); Creatinine,Serum 0.90 mg/dl (0.66-1.25); Estimated Glomerular Filt Rate 83 ml/min (>60); GFR (African American) 100 ML/MIN (>60); Globulin 3.1 g/dL (1.3-3.2); Glucose 166 mg/dl (74-100); Potassium 3.5 mmoL/L (3.5-5.1); Sodium 138 mmol/L (136-145); Total Protein,Serum 7.2 g/dl (6.3-8.2)
[2025-05-07 22:13] LABS: Activated Partial Thrombo Time 23.3 seconds (22.8-30.6); INR 0.95 (0.9-1.1); Prothrombin Time 10.6 seconds (10.1-12.5)
[2025-05-07] MEDS: IOPAMIDOL-370 (76%);100ML BOTTLE 120 ML IV (22:32)
[2025-05-07] MEDS: SODIUM CHLORIDE 0.9% 10ML SYR (RAD ONLY) 10 ML IV (22:32)
[2025-05-07] MEDS: 0.9 % SODIUM CHLORIDE 50 ML VIAL IV (22:32)
[2025-05-07 22:55] VITALS: PULSE 73; O2SAT 95
[2025-05-07 23:00] VITALS: BP 136/72; PULSE 74; O2SAT 96
[2025-05-07 23:15] VITALS: PULSE 72; O2SAT 96
[2025-05-07 23:30] VITALS: BP 131/56; PULSE 79; O2SAT 97
[2025-05-07 23:45] VITALS: PULSE 71; O2SAT 95
[2025-05-08] VITALS: BP 121/59; PULSE 67; O2SAT 98
[2025-05-08 00:15] VITALS: PULSE 78; O2SAT 98
[2025-05-08 00:27] VITALS: BP 121/59; PULSE 68; RESP 16; TEMP 36.6; O2SAT 96
== END 2025-05-08 00:29 | disposition home or self-care (01) ==
PROVIDERS: Emergency Provider Student in an Organized Health Care Education/Training Program; PCP Pediatrics
DX: M79.605 Pain in left leg (principal); S80.12XA Contusion of left lower leg, initial encounter; X58.XXXA Exposure to other specified factors, initial encounter
CPT/HCPCS: 73706; 80053; 85025; 85610; 85730; 99284; Q9967